=== PATIENT | male | born 1945 | race African-American/Black ===

== ENCOUNTER 2019-02-25 16:04 | Inpatient (IN) ==
--- NOTE | 2019-02-25 18:46 | Diag Imaging Result Doc PS360 ---
EXAM: CHEST-2 VIEWS INDICATION: COUGH TECHNIQUE: 2 views COMPARISON: 08/27/2018 FINDINGS: There are partial pneumonectomy changes on the right. There is a very dense consolidation involving the right lower lung zone and, to a lesser degree, the right midlung zone. The right midlung zone opacity can be seen on the previous study. The more dense consolidation at the right lung base is new. The left lung is clear. Cardiac silhouette is stable. IMPRESSION: Dense consolidation on the right indicating pneumonia. Electronically signed by Srikanth Dobson 02/25/2019 6:43 PM
[2019-02-25 18:48] LABS: URINE SOURCE CLEAN CATCH
[2019-02-25 18:53] LABS: BILIRUBIN URINE NEGATIVE (NEGATIVE); BLOOD URINE TRACE (NEGATIVE); COLOR YELLOW; GLUCOSE URINE NEGATIVE (NEGATIVE); KETONE URINE TRACE mg/dL (NEGATIVE); LEUKOCYTES URINE NEGATIVE (NEGATIVE); NITRITE URINE NEGATIVE (NEGATIVE); PH URINE 5.5; PROTEIN URINE 30 mg/dL (NEGATIVE); SP GRAVITY URINE 1.029; TURBIDITY URINE CLEAR (CLEAR); UROBILINOGEN URINE NORMAL (NORMAL)
[2019-02-25 18:54] LABS: BASO# 0.03 X1000 (0.0-0.2); BASO% 0.3 % (0.0-0.8); EOS# 0.01 X1000 (0.0-0.7); EOS% 0.1 % (0.0-10.0); HEMATOCRIT 37.8 % (42.0-52.0); HEMOGLOBIN 12.5 g/dL (14.0-18.0); IMM GRAN# 0.03 X1000 (0.0-0.04); IMM GRAN% 0.3 % (0.0-0.5); LYMPH# 1.68 X1000 (1.2-3.4); LYMPH% 16.1 % (20.5-51.1); MCH 29.8 PG (27-31); MCHC 33.1 g/dL (33-37); MCV 90.2 FL (81-99); MONO# 0.93 X1000 (0.11-0.59); MONO% 8.9 % (1.7-9.3); MPV 10.6 FL (7.4-10.4); NEUT# 7.78 X1000 (1.4-6.5); NEUT% 74.3 % (42.2-75.2); PLT 209 X1000 (130-400); RBC 4.19 XMIL (4.7-6.1); RDW 13.5 % (11.5-14.5); WBC 10.46 X1000 (4.8-10.8)
[2019-02-25 18:57] LABS: UR EPITHELIAL CELLS <10 /HPF (<10); URINE BACTERIA NEGATIVE /HPF; URINE RBC <10 /HPF (<10); URINE WBC <10 /HPF (<10)
[2019-02-25 19:02] LABS: URINE CASTS NONE SEEN; URINE CRYSTALS NONE SEEN; URINE YEAST NONE SEEN
[2019-02-25 19:11] LABS: AGAP 14; ALB/GLOB RATIO 0.9; ALBUMIN 3.9 g/dL (3.5-5.0); ALKALINE PHOSPHATASE 71 U/L (32-122); BUN 17 mg/dL (8-22); CALCIUM 9.5 mg/dL (8.8-10.2); CHLORIDE 93 mmol/L (98-107); COSMO 261; CREATININE 0.9 mg/dL (0.7-1.2); ESTIMATED GFR > 60; GLUCOSE 105 mg/dL (70-104); GOT 31 U/L (10-34); GPT 16 U/L (10-44); POTASSIUM 5.1 mmol/L (3.5-5.1); SODIUM 129 mmol/L (136-145); TCO2 22 mmol/L (25-35); TOTAL BILIRUBIN 0.73 mg/dL (0.20-1.00); TOTAL PROTEIN 8.1 g/dL (6.3-8.3)
--- NOTE | 2019-02-25 19:36 | PROVIDER DOCUMENTATION ---
HPI-General Adult - General Chief Complaint: Abdominal Pain Stated Complaint: EXTREMITY PAIN,LUNG CANCER Time Seen by Provider: 02/25/19 17:18 Source: patient Allergies/Adverse Reactions: Patient Allergies Allergy/AdvReac Type Severity Reaction Status Date / Time No Known Allergies Allergy Verified 02/20/19 08:10 Home Medications: Home Medication List Medication Instructions Recorded Confirmed Last Taken Type Hydrocodone/Acetaminophen [[place] 1 ea PO TID 02/20/19 02/20/19 Unknown History 7.5-325 Tablet] Zolpidem Tartrate [Ambien] 10 mg PO QHS 02/20/19 02/20/19 Unknown History - History of Present Illness -Gen Adult Nature of Presenting Problems: 74 YOM WITH PMH PRESENTS WITH C/O GENERALIZED ABDOMINAL DISCOMFORT, POOR PO INTAKE AND SCROTAL SWELLING. HE REPORTS HE WAS SUPPOSED TO SEE CARDIOLOGY TODAY FOR SURGICAL CLEARANCE FOR SCROTAL SURGERY BUT THE OFFICE WAS CLOSED. HE HAS A HX OF LUNG CA AND FAMILY REPORTS THEY ARE CONCERNED IT HAS SPREAD AND THAT IS WHY HE WAS BROUGHT IN. HE HAD A LOBECTOMY IN 2016. Location of Pain/Injury: reports: back Pain Radiation: reports: no radiation Quality of Pain: reports: aching Severity: reports: moderate Onset/Duration: reports: unsure Timing: reports: still present Context/Activities at Onset: reports: none Modifying Factors: improves with: nothing Associated Symptoms: reports: back/neck pain (BACK PAIN), other (SWELLING IN SCROTUM) Similar Symptoms Previously?: Yes Recently seen or treated by another doctor?: No Review of Systems - Adult - REVIEW OF SYSTEMS - ADULT Constitutional: reports: no symptoms reported. denies: see HPI, chills, fever, fatique, night sweats, weight gain, weight loss, other Eyes: reports: no symptoms reported. denies: see HPI, discharge, dry eyes, dec reased vision, blurred vision, double vision, eye pain, redness, other Ears, Nose, Mouth & Throat: reports: no symptoms reported. denies: see HPI, ear discharge, ear pain, hearing loss, tinnitus, epistaxis, sinus problem, nose pain, loose teeth, mouth/dental pain, mouth swelling, hoarseness, throat pain, throat swelling, other Cardiovascular: reports: no symptoms reported. denies: see HPI, chest pain, edema, heart murmur, irregular heart rate, orthopnea, palpitations, poor circulation, PND, syncope, other Respiratory: reports: see HPI, chronic cough, cough, dyspnea on exertion. denies: no symptoms reported, excessive sputum production, hemoptysis, pleurisy, shortness of breath, wheezing, other Gastrointestinal: reports: no symptoms reported. denies: see HPI, abdominal pain, hematemesis, constipation, diarrhea, difficulty swallowing, frequent heartburn, nausea, poor appetite, rectal bleeding, vomiting, other Genitourinary: reports: no symptoms reported. denies: see HPI, dysuria, di scharge, frequency, flank pain, frequent UTI's, hematuria, hesitency, incontinence, urinary retention, urgency, other Musculoskeletal: reports: see HPI, back pain Integumentary: reports: no symptoms reported. denies: see HPI, hives, hair loss, itching, mole changes, nail changes, rash, skin sores/ulcer, skin thickening, other Neurological: reports: no symptoms reported. denies: see HPI, ataxia, dizziness/vertigo, headache/migraines, loss of balance, numbness, paresthesia, seizure, slurred speech, syncope, tremors, other Psychiatric: reports: no symptoms reported. denies: see HPI, anxiety, anti- depressant use, alcohol/drug dependence, depression, emotional problems, insomnia, panic attacks, suicidal thoughts, other Endocrine: reports: no symptoms reported. denies: see HPI, change in skin pigment, excessive sweating, goiter, cold intolerance, heat intolerance, increased hunger, increased thirst, polyuria, other Hematologic/Lymphatic: reports: no symptoms reported. denies: see HPI, blood clots, easy bruising, low blood count, lymphedema, prolonged bleeding, swollen lymph nodes, transfusions, other Allergic/Immunologic: reports: no symptoms reported. denies: see HPI, allergic reactions, allergic rhinitis, asthma, eczema, food allergy, frequent infections, hay fever, hives, positive PPD, urticaria, other Past History - Adult - PAST MEDICAL HISTORY-ADULT Review of Records: reports: Nursing Assessment Review, Social history reviewed & non-contributory. Major Childhood Illnesses: reports: denies history Cardiovascular: reports: denies history Respiratory: reports: cancer Gastrointestinal: reports: denies history Obstetrical/Gynecological: reports: denies history Genitourinary: reports: denies history Musculoskeletal: reports: denies history Neurological: reports: denies history Endocrine/Immune: reports: denies history Other Conditions: reports: denies history - PRIOR SURGERIES/PROCEDURES Surgical/Procedure History: reports: back/neck, other - IMMUNIZATION STATUS Childhood Immunizations: See Nurse Assessment Flu Vaccine: See Nurse Assessment - FAMILY HISTORY Family History: reviewed, not pertinent Physical Exam-General - PHYSICAL EXAM-ADULT Initial Vital Signs Reviewed: Yes - CONSTITUTIONAL General Appearance: alert, no apparent distress, thin - EYES Eyes: PERRL/EOMI, pink conjunctivae - HEAD, EARS, NOSE, MOUTH & THROAT HENMT: normocephalic/atraumatic, moist mucous membranes, normal ENT inspection - NECK Neck: non-tender, full range of motion, supple - RESPIRATORY Respiratory: no respiratory distress, crackles (RLL) - CARDIOVASCULAR Cardiovascular: normal peripheral pulses, regular rate, rhythm. negative: no edema (PT HAS SCROTAL EDEMA WHICH IS NOT NEW) - GASTROINTESTINAL (ABDOMEN) Abdominal Exam: normal bowel sounds, non tender, soft - LYMPHATIC Lymphatic: no adenopathy - MUSCULOSKELETAL Back Exam: normal inspection, no CVA tenderness, no vertebral tenderness Extremity: normal range of motion, non-tender, normal gait, normal inspection - SKIN Integumentary: normal color, normal turgor, warm/dry - NEUROLOGIC Neurologic: grossly normal - PSYCHIATRIC Psych/Mental Status: normal mood/affect, oriented x 3 Progress - PLAN OF CARE/RESULTS Progress/Plan/Lab Results: Vital Signs - 8 hr 02/25/19 16:24 Temperature 98.0 F Pulse Rate 101 H Respiratory Rate 18 Blood Pressure 109/72 O2 Sat by Pulse Oximetry 95 Laboratory Results - last 24 hr 02/25/19 02/25/19 02/25/19 18:32 18:32 18:32 WBC 10.46 RBC 4.19 L Hgb 12.5 L Hct 37.8 L MCV 90.2 MCH 29.8 MCHC 33.1 RDW Std Deviation 13.5 Plt Count 209 MPV 10.6 H Immature Gran % (Auto) 0.3 Neut % (Auto) 74.3 Lymph % (Auto) 16.1 L [place] % (Auto) 8.9 Eos % (Auto) 0.1 Baso % (Auto) 0.3 Immature Gran # (Auto) 0.03 Neut # (Auto) 7.78 H Lymph # (Auto) 1.68 [place] # (Auto) 0.93 H Eos # (Auto) 0.01 Baso # (Auto) 0.03 Sodium 129 L Potassium 5.1 Chloride 93 L Carbon Dioxide 22 L Anion Gap 14 BUN 17 Creatinine 0.9 Estimated GFR/1.73 m2 > 60 BUN/Creatinine Ratio 19 Glucose 105 H Calculated Osmolality 261 Calcium 9.5 Total Bilirubin 0.73 AST 31 ALT 16 Alkaline Phosphatase 71 Total Protein 8.1 Albumin 3.9 Globulin 4.2 Albumin/Globulin Ratio 0.9 Urine Source CLEAN CATCH Urine Color YELLOW Urine Turbidity CLEAR Urine pH 5.5 Ur Specific [place] 1.029 Urine Protein 30 A Ur Glucose (Stick) NEGATIVE Ur Ketones (Stick) TRACE A Urine Blood TRACE A Urine Nitrite NEGATIVE Urine Bilirubin NEGATIVE Urobilinogen Dipstick NORMAL Urine Leukocytes NEGATIVE Urine WBC (Auto) <10 Urine RBC (Auto) <10 U Epithel Cells (Auto) <10 Urine Bacteria (Auto) NEGATIVE Urine Crystals NONE SEEN Small Round Cells Not Reportable Urine Casts NONE SEEN Urine Yeast-like Cells NONE SEEN Orders Category Date Time Status cxr [CHEST-2 VIEWS] [RAD] Stat Exams 02/25/19 17:22 Completed CBC WITH ELECTRONIC DIFF [HEME] Stat Lab 02/25/19 18:32 Completed COMPREHENSIVE METABOLIC PANEL [CHEM] Stat Lab 02/25/19 18:32 Completed UA NIMS W/REFLEX CULT [URINALYSIS] Stat Lab 02/25/19 18:32 Completed URINE MANUAL MICROSCOPIC [URINALYSIS] Stat Lab 02/25/19 18:32 Completed EKG [EKG] Stat Ther 02/25/19 17:22 Ordered Result Diagrams: 02/25/19 18:32 02/25/19 18:32 - EKG 1 Time of EKG reading by physician:: 18:36 EKG Read and Signed by:: Iftikhar Celis EKG Interpretation (*Must complete 3 of following elements*): Abnormal Rate: 103 Rhythm: ST [place]: normal QRS: normal [place] Interval: normal ST Wave: normal Prior EKG Comparison: no prior EKG - XRAY 1 XRAY Study: Chest Impression: See EMR Report (EXAM: CHEST-2 VIEWS INDICATION: COUGH TECHNIQUE: 2 views COMPARISON: 08/27/2018 FINDINGS: There are partial pneumonectomy changes on the right. There is a very dense consolidation involving the right lower lung zone and, to a lesser degree, the right midlung zone. The right midlung zone opacity can be seen on the previous study. The more dense consolidation at the right lung base is new. The left lung is clear. Cardiac si lhouette is stable. IMPRESSION: Dense consolidation on the right indicating pneumonia. Electronically signed by Srikanth Dobson 02/25/2019 6:43 PM 02/25/191842 Interpreting Physician: Srikanth Dobson MD Dictated Date/Time: 02/25/191841 cc: Rufina Lamar; Mike Uribe MD) Departure - Departure Date of Disposition Decision: 02/25/19 Time of Disposition Decision: 20:56 DIAGNOSIS: Pneumonia Disposition: ADMITTED INPATIENT 09 Certified Medical Emergency: Emergent Condition: Stable Referrals and Follow-Ups: Mike Uribe MD [Primary Care Provider] - - Critical Care Note This patient required my direct & personal management of CC.: No Attestation - Physician/ OSCAR Attestation Patient care was provided by Advanced Practice Provider:: Yes Advanced Practice Provider:: Rufina Lamar Advanced Practice Provider documentation review:: The Mid-level provider documentation, treatment plan and medical decision making was reviewed by the physician who agrees with all treatment and medical decision making by the MLP. The physician spent face to face time with patient:: No Advanced Practice Provider documentation review:: Supervising physician onsite and consulted in the evaluation and care of this patient. The physician did not have a face to face encounter with the patient.
--- NOTE | 2019-02-25 19:51 | EKG Report ---
Test Performed on : 02/25/2019 6:36:49 PM Test Reason : CP Blood Pressure : / mmHG Vent. Rate : 103 BPM Atrial Rate : 103 BPM P-R Int : 120 ms QRS Dur : 070 ms QT Int : 322 ms P-R-T Axes : 061 070 058 degrees QTc Int : 421 ms Sinus tachycardia. Possible Left atrial enlargement Borderline ECG When compared with ECG of 20-FEB-2019 08:26, Sinus rhythm. has replaced Atrial fibrillation. Nonspecific T wave abnormality no longer evident in Inferior leads Nonspecific T wave abnormality no longer evident in Lateral leads Unconfirmed Result
[2019-02-25] MEDS ORDERED: ROCEPHIN 1 GM in NS 50 ML IV ONE (20:54)
[2019-02-25] MEDS ORDERED: ROCEPHIN 2 GM in NS 50 ML IV ONE (20:57)
[2019-02-25] MEDS ORDERED: ZOSYN 3.375 GM in NS 50 ML IV ONE (20:59)
[2019-02-25 21:21] LABS: INR 1.22; PROTIME 15.6 Seconds (11.0-16.0); PTT 32.7 Seconds (22.3-41.8)
--- NOTE | 2019-02-25 21:58 | Diag Imaging Result Doc PS360 ---
EXAM: ABDOMEN FLAT/UPRIGHT INDICATION: Abd. Pain, Poss. Constipation TECHNIQUE: 2 views COMPARISON: 08/14/2017 FINDINGS: There is nonspecific patchy bowel gas that appears to be predominantly colonic. There is no definite obstructive bowel pattern. There is no evidence of large volume free abdominal gas. There is a dense right basilar lung consolidation. Please see separate chest radiograph report performed recently. IMPRESSION: Nonspecific abdomen. Electronically signed by Srikanth Dobson 02/25/2019 9:56 PM
[2019-02-25] MEDS ORDERED: CARDIZEM IV ONE (22:06)
[2019-02-25] MEDS ORDERED: CARDIZEM CD PO ONE (22:15)
[2019-02-25] MEDS ORDERED: CARDIZEM CD PO SCH (22:15)
[2019-02-25] MEDS: CARDIZEM 125 MG/D5W 125 MG/125 ML IVPB IV SCH (22:38)
--- NOTE | 2019-02-25 23:03 | EKG Report ---
Test Performed on : 02/25/2019 9:59:30 PM Test Reason : pna tele Blood Pressure : / mmHG Vent. Rate : 131 BPM Atrial Rate : 416 BPM P-R Int : 000 ms QRS Dur : 076 ms QT Int : 286 ms P-R-T Axes : 000 070 029 degrees QTc Int : 422 ms Atrial fibrillation. with rapid ventricular response. Abnormal ECG When compared with ECG of 25-FEB-2019 18:36, (Unconfirmed) Atrial fibrillation. has replaced Sinus rhythm. Nonspecific T wave abnormality now evident in Inferior leads Unconfirmed Result
[2019-02-25] MEDS ORDERED: ZOFRAN IV PRN (23:15)
[2019-02-25] MEDS ORDERED: NICODERM PATCH TD PRN (23:15)
[2019-02-25] MEDS ORDERED: TESSALON PO PRN (23:15)
[2019-02-25] MEDS ORDERED: NS NEB INH SCH (23:15)
[2019-02-26] MEDS: NORCO-10 PO PRN ×2 (00:11→20:11)
[2019-02-26] MEDS: ATROVENT NEB INH PRN ×3 (00:16→19:45)
[2019-02-26] MEDS: XOPENEX NEB INH PRN ×3 (00:16→19:45)
[2019-02-26] MEDS: AMBIEN PO PRN ×2 (01:09→20:11)
[2019-02-26] MEDS ORDERED: PRILOSEC PO PRN (02:01)
[2019-02-26] MEDS ORDERED: TYLENOL PO PRN (02:01)
[2019-02-26] MEDS: NS 1,000 ML IV SCH ×2 (02:50→12:47)
[2019-02-26 05:48] LABS: BASO# 0.02 X1000 (0.0-0.2); BASO% 0.2 % (0.0-0.8); EOS# 0.02 X1000 (0.0-0.7); EOS% 0.2 % (0.0-10.0); HEMATOCRIT 32.5 % (42.0-52.0); HEMOGLOBIN 10.8 g/dL (14.0-18.0); IMM GRAN# 0.02 X1000 (0.0-0.04); IMM GRAN% 0.2 % (0.0-0.5); LYMPH# 1.76 X1000 (1.2-3.4); LYMPH% 18.8 % (20.5-51.1); MCHC 33.2 g/dL (33-37); MCV 90.3 FL (81-99); MONO# 1.17 X1000 (0.11-0.59); MONO% 12.5 % (1.7-9.3); NEUT# 6.37 X1000 (1.4-6.5); NEUT% 68.1 % (42.2-75.2); PLT 174 X1000 (130-400); RDW 13.4 % (11.5-14.5); WBC 9.36 X1000 (4.8-10.8)
[2019-02-26 06:15] LABS: AGAP 12; BUN 15 mg/dL (8-22); CALCIUM 9.1 mg/dL (8.8-10.2); CHLORIDE 97 mmol/L (98-107); COSMO 262; CREATININE 0.8 mg/dL (0.7-1.2); ESTIMATED GFR > 60; GLUCOSE 103 mg/dL (70-104); MAGNESIUM 2.1 mg/dL (1.5-2.7); POTASSIUM 4.7 mmol/L (3.5-5.1); SODIUM 130 mmol/L (136-145); TCO2 21 mmol/L (25-35)
[2019-02-26] MEDS: ZOSYN 3.375 GM in NS 50 ML IV SCH ×3 (07:43→20:12)
--- NOTE | 2019-02-26 07:52 | EKG Report ---
Test Performed on : 02/26/2019 07:43:24 AM Test Reason : A-Fib Blood Pressure : / mmHG Vent. Rate : 078 BPM Atrial Rate : 078 BPM P-R Int : 120 ms QRS Dur : 080 ms QT Int : 386 ms P-R-T Axes : 057 066 048 degrees QTc Int : 440 ms Poor data quality, interpretation may be adversely affected Normal sinus rhythm. Normal ECG When compared with ECG of 25-FEB-2019 21:59, (Unconfirmed) Sinus rhythm. has replaced Atrial fibrillation. Vent. rate has decreased BY 53 BPM Confirmed by Foster PRIDE, Robb Vela ([id number]) on 02/26/2019 9:11:41 AM
--- NOTE | 2019-02-26 08:45 | Diag Imaging Result Doc PS360 ---
EXAM: CT THORAX W/CONTRAST 02/26/2019 HISTORY: RLL PNA,Hx of R Lung CA TECHNIQUE: This exam was performed using automated exposure control, adjustment of mA or kV according to patient size, and/or use of iterative reconstruction technique. COMMENT: There are no previous studies available for comparison. There is apparent left supraclavicular adenopathy. The individual nodes are not identifiable given the extreme lack of surrounding fat. There is also right paratracheal and prevascular adenopathy. There is a large mass of nodes anterior to the bebo which measures at least 2.6 cm in diameter. There is a conglomerate mass around the right hilum with extrinsic compression of the upper lobe pulmonary artery and the interlobar artery. The lower lobe pulmonary veins apparently are thrombosed and calcified. There is obstruction of the right mainstem bronchus. There is extensive alveolar opacification of most of the right lung with the exception of the right upper lobe. There is a discrete spiculated mass in the upper lobe measuring 2.7 cm in diameter. Multiple posterior mediastinal necrotic appearing enlarged nodes are present including one adjacent to the esophagus on the right measuring at least 2.6 cm in diameter. There is massive retroperitoneal adenopathy seen in the abdomen particularly below the level the renal pedicles on the right. There are some emphysematous changes noted in the left lower lobe and upper lobe. No evidence of acute pulmonary disease is present on the left. There is lytic change in the posterior right sixth rib as well as some apparent postsurgical changes. This may be related to localized invasion rather than hematogenously spread metastatic disease. There are spondylotic changes in the thoracic spine. IMPRESSION: Extensive adenopathy as described throughout the mediastinum, right hilum, left supraclavicular region and retroperitoneal nodes in the abdomen. Extensive mass in the parahilar region of the right lung with separate mass in the right upper lobe. Lymphangitic spread of carcinoma and/or post obstructive pneumonitis is present on the right as well. There is likely invasion of the posterior chest wall possibly related to previous thoracotomy in this location. Comparison with previous studies would be helpful. Electronically signed by Tyler Costello 02/26/2019 8:43 AM
--- NOTE | 2019-02-26 08:52 | HISTORY AND PHYSICAL ---
PRIMARY CARE PROVIDER: Dr. Uribe. DATE AND TIME: 02/25/2019 at 2115. CHIEF COMPLAINT: Shortness of breath. HISTORY OF PRESENT ILLNESS: Mr. Motta is a 74-year-old -[place] male who unfortunately is not a good historian and does appear to have some medical noncompliance as well. The patient states that he does have a past medical history most pertinent for atrial fibrillation, COPD, history of lung cancer in the right lower lobe, status post partial pneumonectomy on the right for which he did receive chemo and radiation previously. The patient reports 2 weeks ago that he was admitted to [facility], though did ultimately sign out against medical advice. He has recently been prescribed prescriptions for amoxicillin, azithromycin, and ciprofloxacin. I am not sure which one of these the patient was supposed to be taking possibly for treatment of his pneumonia, though he states he has not taken them anyway. He also reports that he was supposed to have a surgery for some fluid on his scrotum on Monday. I am assuming this was possibly a surgical procedure for hydrocele, though due to his heart rate being irregular and elevated, they did not do the procedure. He was supposed to follow up with Cardiology today, though he reports that for an unknown reason their office was closed. He states that for several weeks now that he has had worsening fatigue. He also reports that he has had worsening shortness of breath, productive cough with white to yellowish thick colored sputum. He states that he is having some right mid chest pain though this is only when he coughs. It does not hurt any other time. It does not radiate. It stays just in the anterior right mid chest. He denies any fever, body aches, or chills though he is reporting he has had some generalized abdominal pain. He reports that he has been a little constipated and did take magnesium citrate yesterday, though only had a very small bowel movement. He also reports that the antibiotics he was taking were hurting his stomach and that is why he did not complete the antibiotic course. He denies any nausea or diarrhea. He reports no dysuria. He denies any pain, numbness, tingling or swelling in extremities. Upon questioning the patient about his adherence to his prescription medications, he reports the only thing he takes regularly is his Denver and Ambien. He was supposed to be taking the antibiotics as previously mentioned, as well as Cartia XT 120 mg p.o. daily for his heart rate control and he states that he does not take that either like he is supposed to, though he denies having any feelings of palpitations or his heart racing. He also denies any dizziness, feeling of being lightheaded or headache. Upon evaluation in the ER, patient's initial vital signs were temperature 98 degrees, heart rate 101, respirations 18, blood pressure is 109/72, and oxygen saturation was 95% on room air. Laboratory results reveal that he is mildly hyponatremic with a sodium of 129, though his CK was within normal limits at 115. His troponin was elevated at 0.2. Chest x-ray did show a dense consolidation on the right indicating pneumonia. During my examination in the ER, I did notice that the patient's pulse rate on the pulse oximeter was very erratic, was going from 80s up into the 140s. We did place him back on the bedside order booker and the patient did appear to be in atrial fibrillation with rapid ventricular response. He was ranging anywhere from 110 to 140s though did get up at 1 point to as high as 170. He did briefly flop back and forth in and out of atrial fibrillation and sinus rhythm, though ultimately did end up going and staying in atrial fibrillation with rapid ventricular response. Given this, we did go ahead and place a Cardizem push and he has been placed on a Cardizem drip as well. Blood cultures have been obtained. We have placed him on antibiotic coverage of Zosyn IV. We do plan to do a CT of the chest with contrast in the morning as well as a cardiology consult. He will be placed on inpatient admission to the PVC unit for close monitoring. REVIEW OF SYSTEMS: A 14-point review of systems was conducted with the patient and all were negative except for pertinent positives mentioned in the above HPI. PAST MEDICAL HISTORY: 1. Atrial fibrillation. It does appear the patient has paroxysmal atrial fibrillation. He did report he was noncompliant with his Cartia XT. He also reports that he does not take any type of anticoagulant or anti-platelet. 2. Anemia. 3. History of right lower lobe lung cancer status post partial pneumonectomy as well as chemo and radiation. His oncologist is Dr. Dowling. 4. Chronic obstructive pulmonary disease. 5. Recent complications with scrotal swelling from which the patient describes I think may be hydrocele, though he was not able to confirm this. PAST SURGICAL HISTORY: 1. Back surgery. 2. Right partial pneumonectomy. 3. Colonoscopy with polyp removal. SOCIAL HISTORY: The patient still does currently smoke 1 pack of cigarettes per day and has done so since age 17. He did report occasional alcohol use, though states he has not drank in weeks. He denies any alcohol or illicit drug use. He does live by himself, though states he does have friends or family that can help him if needed. FAMILY HISTORY: Positive for his father having a history of heart disease, though he states he does not know any of his mother's past medical history. ALLERGIES: Patient has no known allergies. HOME MEDICATIONS: 1. Cartia XT 120 mg p.o. daily. 2. Ambien 10 mg p.o. at bedtime p.r.n. for sleep. 3. Denver 10 mg p.o. q.8 hours p.r.n. for pain. 4. Omeprazole 20 mg p.o. daily as needed for indigestion/heartburn. DIAGNOSTIC STUDIES: White blood cell count is 10,460, hemoglobin 12.5, hematocrit 37.8, platelet count is 209,000. PT 15.6, INR 1.22, PTT is 32.7. Sodium 129, potassium 5.1, chloride 93, serum bicarb is 22, BUN 17, creatinine 0.9, glucose 105, calcium 9.5, magnesium 2.2. Liver function tests are within normal limits. CK 115, troponin 0.2. Plasma lactate was 1.6. Urinalysis was obtained via clean catch and was positive for protein, trace ketones, and blood. It was negative for glucose, nitrites, leukocytes, white blood cells, or bacteria. EKG initially did show sinus tachycardia at a rate of 103 with possible left atrial enlargement, though repeat EKG did confirm the patient was in atrial fibrillation with rapid ventricular response at a rate of 103 with a QTc of 422. When I compared this EKG from his previous EKG that was just done on February 20, there does not appear to be any acute changes noted. Flat and upright abdomen x-ray showed nonspecific patchy bowel gas that appears to be predominantly colonic. There is no definite obstructive bowel pattern. There is no evidence of large volume free abdominal gas. There is a dense right basilar lung consolidation. Please see separate chest radiograph report performed recently. This is per Radiology. Chest x-ray did show partial pneumonectomy changes on the right. There is a very dense consolidation involving the right lower lung zone and to a lesser degree the right mid lung zone. The right mid lung zone opacity can be seen on a previous study. The more dense consolidation in the right lung base is new. The left lung was clear. This is per Radiology. PHYSICAL EXAMINATION: VITAL SIGNS: Most recent vital signs would be heart rate 163, respirations 14, blood pressure 130/85, oxygen saturation was 98% on room air. GENERAL: Mr. Motta is a pleasant 74-year-old -[place] male. He was resting on the ER stretcher. He is in no acute distress. He was awake, alert, and able to answer questions appropriately. HEENT: Head is atraumatic, normocephalic. Pupils are equal, round, reactive to light were 3 mm bilaterally and brisk. Oral mucosa was moist. Oropharynx clear. NECK: Supple. Trachea midline. CARDIOVASCULAR: Patient has S1-S2 present. He has no murmurs, gallops, or rubs appreciated though he does have a irregularly irregular rate that is tachycardic anywhere from the 110s to 160s. PULMONARY: Patient has symmetrical chest expansion bilaterally. Lung sounds are clear to auscultation in bilateral upper trevino though he does have clear lung sounds in the left lower lung trevino, though he was diminished pretty much from the right mid lung down in the lower lobes. Right lower lobes had absent lung sounds. ABDOMEN: Soft, does appear to be slightly distended. The patient reports some generalized tenderness, though no rebound tenderness noted. Bowel sounds were present in all 4 quadrants and were normoactive. EXTREMITIES: No cyanosis or edema noted. Pulse, motor, and sensory were intact in all extremities. Radial pulses were 2+ bilaterally. Pedal pulses were 1+ bilaterally. INTEGUMENTARY: The patient's skin color is normal for his race, is dry and intact. NEUROLOGICAL: Patient is alert and oriented to person, place, time, and situation. He is able move all extremities. There were no focal neurological deficits noted. ASSESSMENT AND PLAN: 1. Right middle lobe to lower lobe pneumonia. We have obtained blood cultures and sputum culture has been ordered as well. We have placed the patient on antibiotic coverage with Zosyn. We will continue with aggressive pulmonary toilet with incentive spirometry, encouragement to turn, cough and deep breathe. Atrovent and Xopenex treatments as needed. Given the patient's history of lung cancer as well as his x-ray findings, we are going to order a CT chest with contrast in the morning. We will await those results and continue to follow. 2. History of chronic obstructive pulmonary disease. We will continue treatment as mentioned above for #1. 3. Atrial fibrillation with rapid ventricular response. The patient does report that he is not compliant with his Cartia XT on a regular basis. He has been given Cardizem push and we placed him on a Cardizem drip. He will be placed in the PVC unit for close monitoring. The patient was supposed to have a procedure on Monday, though due to his heart rate being elevated, they did not perform this. The patient is denying any chest pain at this time, except for only when he coughs in the anterior right mid chest, though his troponin was elevated. We will go ahead and do a series of cardiac enzymes. We will repeat EKG in the morning. We have placed a consult with Cardiology with Dr. Jha. We will await their evaluation and further recommendations for management. 4. Nicotine dependence. We did discuss for several minutes with the patient the importance of him to quit smoking given that he has had a history of lung cancer, COPD, and now has pneumonia. He states verbal understanding. We will continue to alcohol and drug counselor him on this throughout his admission and upon discharge. We have placed orders for a nicotine patch if needed. 5. Abdominal pain. The patient has reported that he has been having some abdominal pain. He also reports that he has not had a bowel movement for several days until yesterday when he did have to take some magnesium citrate and had a very small bowel movement. We did perform a abdomen x-ray, flat and upright, which showed nonspecific patchy bowel gas that appears to be predominantly colonic. There is no definite obstructive bowel pattern. There was no evidence of large volume free abdominal gas. Though given the patient's reported symptoms we will go ahead and place him on a bowel regimen with MiraLAX and Colace. We will monitor his response to this. The patient was placed on PVC unit for close monitoring. We will do continuous cardiac telemetry, frequent vital signs, incentive spirometry. He will be on a heart healthy diet. We will repeat a CBC and BMP in the morning. Further orders and recommendations pending hospital course, diagnostic studies, and physician evaluation. Patient seen and examined by me face to face, all the laboratory, vitals signs and images were reviewed, patient presented to the emergency department complaining of shortness of breath, as per the patient he has been having this kind of symptoms for a couple weeks, he has a history of COPD and lung cancer S/P pneumonectomy, partial, on my physical exam he has rhonchi at the right base, mild crepitus on the left lower thoracic area, he has A Fib with RVR, so the patient will be admitted tp the cardiac unit, we will start Diltiazem drip, antibiotics, fluids, stool softener for constipation, I agree with the ACCOUNT REVIEW SPECIALIST's assessment and plan, Jameson Liu MD. Dictated by SHARLA Bee for Jameson Mireles MD cc: MD Mike Hurtado MD [email or web address]
[2019-02-26] MEDS ORDERED: LOVENOX SUBQ SCH (09:00)
--- NOTE | 2019-02-26 09:28 | Diag Imaging Result Doc PS360 ---
EXAM: CT ABD/PELVIS W/IV CONT ONLY 02/26/2019 HISTORY: chest mass extending into abdomen TECHNIQUE: This exam was performed using automated exposure control, adjustment of mA or kV according to patient size, and/or use of iterative reconstruction technique. COMMENT: There are no previous studies available for comparison. Extensive disease in the chest has been previously described on the thoracic study. There are some very small lucencies anteriorly in the left hepatic lobe seen on image 44 which may represent cysts. Otherwise there is no definite evidence of disease in the liver. The adrenal glands are not enlarged. The spleen is not enlarged. The pancreas is unremarkable in appearance. There is some retrocrural adenopathy which a suggestion of central necrosis. There are also necrotic appearing large matted nodes in the periaortic region on the right. The inferior vena cava is displaced anteriorly by these nodes. There is some atherosclerotic calcification in the aorta which is slightly distended below the level of the renal arteries to a maximum AP diameter of 3 cm. There is considerable mural thrombus. There is an apparent cyst in the upper pole of the right kidney. There is no evidence of hydronephrosis or solid masses. There is a fair amount of stool throughout the colon. There is no evidence of appendicitis. Pelvis: Some adenopathy is noted in the right common and external iliac chain. There are a few nonspecific appearing external iliac nodes on the left. The urinary bladder is not distended. There is some presacral fat edema of uncertain significance. There is calcium pyrophosphate deposition in the symphysis pubis. There are mild degenerative changes in the hips. There is some lytic disease just above the right acetabulum. As may be due to metastatic disease. There are severe facet changes in the lower lumbar spine. IMPRESSION: 1. Extensive adenopathy as described above. 2. Probable osseous metastatic disease in the right iliac bone just above the acetabulum. Electronically signed by Tyler Costello 02/26/2019 9:25 AM
[2019-02-26] MEDS: COLACE PO SCH ×2 (12:10→20:11)
[2019-02-26] MEDS: MIRALAX PO SCH (12:10)
[2019-02-26] MEDS: CARDIZEM 125 MG/D5W 125 MG/125 ML IVPB IV SCH (12:47)
--- NOTE | 2019-02-26 13:36 | PROGRESS NOTE ---
DATE: 02/26/2019 The patient was admitted last night with pneumonia involving the right lower lobe. He had a CT scan done of the abdomen and pelvis, which revealed extensive adenopathy and probable osseous metastasis in the right iliac bone just above the acetabulum. There was a small density in the liver which could be bili versus adenopathy and considerable mural thrombus in the renal arteries. There is no evidence of hydronephrosis. He has a lytic lesion about the right acetabulum which probably has a metastatic disease, and several facet changes in the lumbar spine. He had a CT scan of the chest, which revealed extensive adenopathy as described throughout the mediastinum and right hilum, left superior and lacunar region and retroperitoneal nodes. This is probably a lymphatic spread of the carcinoma. He is on IV Zosyn. We will consult with DR. Dowling for the further management of cancer. -3 cc: Mike Uribe MD
--- NOTE | 2019-02-26 14:31 | CONSULTATION ---
DATE OF CONSULTATION: 02/26/2019 IMPRESSIONS: 1. Paroxysmal atrial fibrillation. Patient has spontaneously converted back to sinus rhythm. He had a previous episode about 3 weeks ago that also spontaneously converted back. 2. Recurrent/metastatic non-small cell lung cancer with history of previous partial pneumonectomy on the right followed by chemotherapy and radiation. 3. Chronic obstructive pulmonary disease. 4. Moderate mitral regurgitation. 5. Atherosclerotic coronary disease. RECOMMENDATIONS: 1. Initiate sotalol 80 mg p.o. b.i.d. to suppress paroxysmal atrial fibrillation. 2. Initiate low-dose Eliquis 2.5 mg p.o. b.i.d. as tolerated for now. Consideration may be given in the future to increase dose to 5 mg p.o. b.i.d. if he tolerates this reasonably well. HISTORY: This 74-year-old male with a past history of paroxysmal atrial fibrillation, COPD, and non-small cell lung cancer was admitted with recurrent atrial fibrillation with rapid ventricular rate. He was just in the hospital in [place] a few weeks ago and records indicate that he was in atrial fibrillation with rapid ventricular rate, after which he spontaneously converted back to sinus rhythm. He did not complete his hospitalization there and left against medical advice. He had been on antibiotic therapy presumably for respiratory infection. He has had recent problems of worsening fatigue, shortness of breath, and productive cough of white to yellowish thick colored sputum. He also has been having some chronic right flank pain. There is some history of inconsistent compliance with medications, although he apparently has been taking his Hamer for pain and Ambien for sleep. He has not been taking his Cartia XT recently. He was found to be in atrial fibrillation with rapid ventricular rate. Since admission to telemetry he has converted back to sinus rhythm. He denies any chest pain. He has not had any palpitations. PAST MEDICAL HISTORY: 1. Atherosclerotic coronary disease. He has no angina. 2. Paroxysmal atrial fibrillation. 3. COPD. 4. Non-small cell lung cancer of the right lung. Patient is status post right lower lobe lobectomy May 30, 2016 followed by chemotherapy and radiation therapy. He has had recurrent/metastatic non-small cell lung cancer. 5. Moderate mitral regurgitation with history of mitral valve prolapse. 6. Chronic alcohol use. PAST SURGICAL HISTORY: Unspecified back surgery, right lower lobe lobectomy, and colonoscopy with polyp removal. ALLERGIES: He has no known drug allergies. MEDICATIONS PRIOR TO ADMISSION: As listed. 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 He smokes 1 pack of cigarettes per day. He drinks an occasional alcoholic beverage. FAMILY HISTORY: Negative for premature coronary disease. REVIEW OF SYSTEMS: Pulmonary: Noteworthy for some exertional shortness of breath as well as productive cough. Sputum described has been white to yellowish in color. Gastrointestinal: Review of systems negative. Constitutional: Review of systems negative for fever. Remainder of review of systems negative/noncontributory with 14 total systems reviewed. PHYSICAL EXAMINATION: General: This is a thin, older -[place] male, in no distress. Vital signs: Blood pressure 122/79, heart rate 98, oxygen saturation 100% on room air. HEENT: Extraocular movements intact. Mucous membranes are moist. Neck: Supple without jugular venous distention. There are no carotid bruits. Chest: Auscultation of the chest reveals diminished breath sounds in the right chest more than half way up the back. Breath sounds on the left are normal. No rales could be appreciated. Cardiac Exam: Reveals a regular rate and rhythm without appreciable murmur or gallop. Abdomen: Soft. Bowel sounds are normal. Extremities: Without edema. Neurologic: Reveals him to be alert and fully oriented. Speech is fluent. Moves all 4 extremities equally well. Skin: Warm and dry. Psychiatric: Reveals mood to be appropriate. PERTINENT DATA: Twelve lead EKG this morning shows normal sinus rhythm and is within normal limits. LABORATORY DATA: Includes white blood cell count 9.36, hematocrit 32.5, hemoglobin 10.8, platelet count 174,000. Sodium 130, potassium 4.7, chloride 97, carbon dioxide 21, BUN 15, creatinine 0.8, glucose 103. Initial CPK 115. Follow-up CPK 75. Initial troponin T 0.200. Follow-up troponin to 0.197. TSH 3.52. cc: MD Mike Pratt MD
[2019-02-26] MEDS: ELIQUIS PO SCH ×2 (14:52→20:11)
[2019-02-26] MEDS: BETAPACE PO SCH ×2 (14:52→20:11)
--- NOTE | 2019-02-26 19:46 | HEMO/ONC CONSULTATION ---
DATE: 02/26/2019 CONSULTATION REQUESTED BY: Hospitalist service. REASON FOR CONSULTATION: Lung cancer, patient known. HISTORY OF PRESENT ILLNESS: Mr. Motta is a 74-year-old male, who is known to us as we have previously treated him for metastatic nonsmall cell lung cancer. The last treatment the patient has received was Opdivo back on 01/12/2017. He discontinued treatment due to intolerance. He has been closely monitored since that time. We have been supporting him with symptomatic management. The patient has now been admitted with right middle lobe and lower lobe pneumonia as well as atrial fibrillation with rapid ventricular rate. He also has a history of chronic obstructive pulmonary disease. He is in the hospital for further evaluation and treatment. PAST MEDICAL HISTORY: Positive for: 1. COPD. 2. Alcohol abuse. 3. Degenerative disk disease. PAST SURGICAL INTERVENTION: 1. Back surgery. 2. Right lower lung lobectomy. SOCIAL HISTORY: Patient is single. He is a former smoker. He has previously reported to us that he is a daily drinker. Of course now, he is saying that he is smoking 1 pack of cigarettes again. It looks like he also recently discontinued the use of alcohol. He has support of family and friends. Up until recently, he has been working part time. FAMILY HISTORY: Positive for congestive heart failure, coronary artery disease. He has previously denied any history of cancer in his family. REVIEW OF SYSTEMS: A 12 point review of systems has been completed and negative except as expressed in HPI. PHYSICAL EXAMINATION: Vital Signs: Temperature 98.1 degrees, heart rate 98, respirations 20, blood pressure 122/79, O2 saturation 100% on room air. General: This is a thin, male lying in his hospital bed. He has a family member at bedside. He is in no acute distress. Head: Normocephalic, atraumatic. Eyes: Pupils equal, round, reactive. Ears, Nose, Throat, Neck, Mouth: Oral mucosa appears to be normal. Cardiovascular: S1, S2 heard. No murmurs, gallops, rubs appreciated. Respiratory: Chest is clear with normal respiratory effort. Gastrointestinal: Abdomen is soft. Positive bowel sounds. Musculoskeletal: No bony abnormalities. Skin: No rashes. Neurologic: Patient is alert and oriented. LABS AND STUDIES: White blood cells 9.36, hemoglobin 10.8, platelets 174,000. CT of the chest shows extensive adenopathy throughout the mediastinum and right hilum and left supraclavicular region. There are retroperitoneal nodes in the abdomen. Extensive mass in the perihilar region of the right lung with separate mass in the right upper lobe. Lymphangitic spread of the carcinoma and obstructive pneumonitis is also present. There is also likely invasion of the posterior chest wall, possibly related to previous thoracotomy. No prior studies to compare to. Extensive adenopathy is noted on the CT of abdomen and pelvis. He has probable osseous metastatic disease in the right iliac bone. ASSESSMENT AND PLAN: 1. Metastatic nonsmall cell lung cancer. No treatment since 2017. Patient has previously opted not to receive any treatment. Comparison to scans done in our office, with the last one being done in May 2017, it would seem that he does likely have worsening disease which would be expected, given that he has not had any treatment. At this point, we would recommend treating the patient's infection, and then we could always follow up with him as an outpatient to discuss further options, including hospice versus initiating palliative treatment. 2. Pneumonia. Continue antibiotics per the primary team. 3. Atrial fibrillation. Cardiology is now on board. Patient is on Eliquis. Continue management per cardiology team. Thank you for consulting us on Mr. Motta. We will continue to follow along and adjust our treatment plan per his hospital course. Dictated by [place] for Estelle Dowling MD cc: MD Mike Lowry MD I have seen and examined the patient and agree with the above note which reflects my history, physical exam, assessment and plan. Estelle MILLER
[2019-02-27] MEDS: ZOSYN 3.375 GM in NS 50 ML IV SCH ×4 (02:11→20:51)
--- NOTE | 2019-02-27 07:33 | EKG Report ---
Test Performed on : 02/27/2019 06:29:57 AM Test Reason : afib, betapace loading Blood Pressure : / mmHG Vent. Rate : 068 BPM Atrial Rate : 068 BPM P-R Int : 126 ms QRS Dur : 080 ms QT Int : 440 ms P-R-T Axes : 062 072 055 degrees QTc Int : 467 ms Normal sinus rhythm. Normal ECG When compared with ECG of 26-FEB-2019 07:43, No significant change was found Confirmed by Foster PRIDE, Robb Vela ([id number]) on 02/27/2019 8:39:10 AM
[2019-02-27] MEDS: COLACE PO SCH ×2 (08:17→20:50)
[2019-02-27] MEDS: BETAPACE PO SCH ×2 (08:17→20:50)
[2019-02-27] MEDS: ELIQUIS PO SCH ×2 (08:17→20:51)
[2019-02-27] MEDS: MIRALAX PO SCH (08:23)
--- NOTE | 2019-02-27 09:32 | PROGRESS NOTE ---
DATE: 02/27/2019 Mr. Motta has right lower lobe pneumonia where he had cancer, and he has local lymph gland enlargement, including right hilar gland enlargement and multiple nodes in the abdomen and pelvis. Besides that, he has metastatic disease in the right iliac bone just above the acetabulum. He is getting IV Zosyn. We are going to repeat the chest x-ray tomorrow. Overall condition and overall prognosis is poor. He is being seen by Dr. Dowling as the consulting oncologist. cc: Mike Uribe MD [facility]
[2019-02-27] MEDS: AMBIEN PO PRN (20:50)
[2019-02-28] MEDS: NORCO-10 PO PRN ×3 (00:18→19:20)
[2019-02-28] MEDS: ZOSYN 3.375 GM in NS 50 ML IV SCH ×4 (02:48→20:37)
--- NOTE | 2019-02-28 08:11 | Diag Imaging Result Doc PS360 ---
EXAM: CHEST-2 VIEWS 02/28/2019 HISTORY: pneumonia follow up TECHNIQUE: PA and lateral chest COMMENT: Compared to the previous study of 02/25/2019, there is increasing consolidation of the right lung particularly the lower and middle lobes, and there is increasing volume loss. This suggests the possibility of endobronchial obstruction. The heart size does not appear to be enlarged although the right heart border is completely obscured. IMPRESSION: Worsening volume loss and consolidation of the right lung as described. Electronically signed by Tyler Costello 02/28/2019 8:09 AM
--- NOTE | 2019-02-28 08:24 | EKG Report ---
Test Performed on : 02/28/2019 07:00:13 AM Test Reason : afib, betapace loading Blood Pressure : / mmHG Vent. Rate : 079 BPM Atrial Rate : 079 BPM P-R Int : 130 ms QRS Dur : 078 ms QT Int : 398 ms P-R-T Axes : 070 085 026 degrees QTc Int : 456 ms Normal sinus rhythm. Normal ECG When compared with ECG of 27-FEB-2019 06:29, No significant change was found Confirmed by Foster PRIDE, Robb Vela ([id number]) on 02/28/2019 8:33:34 AM
[2019-02-28] MEDS: ELIQUIS PO SCH ×2 (08:51→20:37)
[2019-02-28] MEDS: COLACE PO SCH ×2 (08:51→20:37)
[2019-02-28] MEDS: BETAPACE PO SCH ×2 (08:51→20:37)
[2019-02-28] MEDS: MIRALAX PO SCH (08:52)
[2019-02-28] MEDS ORDERED: VANCOMYCIN IV PER PHARMACY MISC SCH (09:00)
[2019-02-28] MEDS: VANCOMYCIN 1,550 MG in NS 250 ML IV SCH (11:11)
--- NOTE | 2019-03-01 01:34 | CONSULTATION ---
DATE OF CONSULTATION: 02/28/2019 REQUESTING PROVIDER: Dr. Mike Uribe. REASON FOR CONSULTATION: Worsening of pneumonia with lung cancer. HISTORY OF PRESENT ILLNESS: This is a 74-year-old, male with a medical history of atrial fibrillation, anemia, right lower lung cancer, COPD, tobacco abuse, atherosclerotic coronary disease, moderate mitral regurgitation, and chronic tobacco and alcohol use. He presented to the ER on 02/25/2019 with generalized abdominal discomfort, poor appetite, and scrotal swelling. Initial workup in the ER revealed right middle lobe and right lower lobe pneumonia. He has been admitted to the medical floor for further evaluation and management. CT on 02/26/2019 revealed extensive adenopathy throughout the mediastinum, right hilum, left supraclavicular region, and retroperitoneal knots in the abdomen; Extensive mass in the perihilar region of the right lung with separate mass in the right upper lobe; Lymphangitic spread of carcinoma and/or post obstructive pneumonitis is present on the right as well, which is likely invasion of the posterior chest wall, possibly related to previous thoracotomy in this location. Patient currently is sitting on the edge of the bed. He is on room air. He has no acute distress noted. He reports pain with coughing in the right lower chest radiating to the back. He has significant weight loss, about 15 to 20 pounds recently. He has chronic cough and dyspnea on exertion, but no wheezing, fever, chills, dizziness, hemoptysis, nausea, bowel habit change, or urination discomfort. He did have some generalized abdominal discomfort prior to admission which is improving at this time. PAST MEDICAL HISTORY: 1. Atrial fibrillation, he is, apparently, not taking any anticoagulants or antiplatelet prior to admission. 2. Anemia. 3. Right lower lobe lung cancer status post right lower lung lobectomy, chemotherapy and radiation. 4. COPD. 5. On going tobacco abuse. 6. Atherosclerotic coronary disease. 7. Moderate mitral regurgitation. PAST SURGICAL HISTORY: 1. Back surgery. 2. Right lower lung lobectomy. 3. Colonoscopies with polyp removal. SOCIAL HISTORY: The patient is single and lives at home. He currently smokes 1 pack per day since age 17. He drinks alcohol occasionally. He has no history of illicit drug use. FAMILY HISTORY: Positive for heart disease. ALLERGIES: No known drug allergies. REVIEW OF SYSTEMS: A 10-point review of systems was conducted and the pertinent's listed in the HPI, otherwise noncontributory. PHYSICAL EXAMINATION: Vital Signs: Temperature 98.2 degrees, blood pressure 98/62, pulse 78, respiratory rate 17, oxygen saturation 99% on room air. General: Chronically ill appealing, sitting on the edge of the bed with no acute distress noted. Very pleasant and cooperative. HEENT: Atraumatic, normocephalic. Trachea midline. Mucosa pink and moist. Respiratory: Breathing even and unlabored. Symmetrical excursion. Auscultation revealed diminished breathing sounds on the right side of the lung, otherwise clear. Cardiovascular: Regular rate and rhythm. Gastrointestinal: Soft, nontender, flat. Normoactive bowel sounds in all 4 quadrants. Extremities: No pedal edema. No cyanosis. No clubbing. Neurologic: Alert, oriented x3. Speech fluent. Follows commands. IMAGING DATA: Chest x-ray this morning showed worsening volume loss and consolidation of the right lung, particularly the lower and middle lobes with possible endobronchial obstruction. ASSESSMENT: This is a 74-year-old male with a medical history of atrial fibrillation, anemia, right lower lung cancer, COPD, tobacco abuse, atherosclerotic coronary disease, and moderate mitral regurgitation. He has been admitted to the medical floor since 02/25/2019 with right middle lobe to lower lobe pneumonia. 1. Right middle lobe and right lower lobe pneumonia, which appears worsening based on the chest x- ray from this morning. 2. Recurrent metastatic nonsmall cell lung cancer. 3. Chronic obstructive pulmonary disease. No exacerbation noted. 4. Ongoing tobacco abuse. PLAN: 1. Continue antibiotics and bronchodilators. Agree to add vancomycin to zosyn at this time. 2. Follow up with chest x-ray, if indicated. 3. Dr. Dowling is on board. 4. Daily smoking cessation education. 5. Continue GI and DVT prophylaxis. 6. Further recommendations pending hospital course. Thank you for the courtesy of this consult. Dictated by SHARLA Jacobo for Rashad Martin MD cc: SHARLA Jacobo MD Amit V. Vora, MD MTDD
[2019-03-01] MEDS: ZOSYN 3.375 GM in NS 50 ML IV SCH ×4 (03:13→21:51)
[2019-03-01] MEDS: ELIQUIS PO SCH ×2 (09:05→23:38)
[2019-03-01] MEDS: BETAPACE PO SCH ×2 (09:05→23:38)
[2019-03-01] MEDS: COLACE PO SCH ×2 (09:05→23:38)
[2019-03-01] MEDS: MIRALAX PO SCH (09:05)
--- NOTE | 2019-03-01 09:14 | PROGRESS NOTE ---
DATE: 02/28/2019 SUBJECTIVE: Mr. Motta is not doing well. A repeat chest x-ray shows worsening of the right lower lobe pneumonia, which is partly mixed with cancer. There could be some of obstructive element in it. We are going to add vancomycin on top of Zosyn. Get a pulmonary consult. Mr. Morgan is refusing for cancer treatment and he has not been getting any active cancer treatment. Even even today, he states he wants to wait and see. He wants to get the PET scan which is not possible over here. We will continue with the current management. cc: Mike Uribe MD
--- NOTE | 2019-03-01 09:48 | HEMO/ONC PROGRESS NOTE ---
DATE: 03/01/2019 SUBJECTIVE: The patient reports that he overall is feeling well. He does note some mild insomnia last night. His appetite is starting to improve. He reports a productive white cough. PHYSICAL EXAMINATION: Vital Signs: Temperature 97.7 degrees, respirations 22, pulse 75, blood pressure 110/63, O2 saturation 96% on room air. General: Pleasant male in no apparent distress. He is up in a chair. HEENT: Eyes, pupils equal, round, and reactive. Mouth: Oral mucosa normal. CV: Regular rate and rhythm. S1, S2. Pulmonary Exam: Clear to auscultation bilaterally. Abdomen: Soft, nontender, nondistended. Bowel sounds present in 4 quadrants. Musculoskeletal: No bony abnormalities. Skin: No rash. Neurological: Alert and oriented. LABS: No a.m. labs. Recent chest x-ray 02/28/2019 revealed worsening volume loss and consolidation of the right lung as described. ASSESSMENT AND PLAN: 1. Metastatic non-small cell lung cancer. He has had no treatment since 2019. He previously has opted to not receive any treatment. By comparing recent scans done at our office with last May 2017 it does appear that he has worsening disease, which would be expected given that he has been off of treatment for quite some time. We will plan to follow up outpatient to consider hospice versus palliative treatment after his acute infection resolves. 2. Pneumonia, currently on antibiotic therapy per primary care team. Most recent x-ray showed worsening. We will monitor. 3. Atrial fibrillation: On Eliquis. Cardiology on board. 4. Follow-up. We will plan to sign off on the weekend and are available as needed. We will return on Monday. Dictated by SHARLA Nguyen for Estelle Dowling MD cc: SHARLA Nguyen MD Amit V. Vora, MD I have seen and examined the patient and the note reflects my history, physical, assessment, and plan. Estelle MILLER
[2019-03-01] MEDS: VANCOMYCIN 1,550 MG in NS 250 ML IV SCH (10:47)
--- NOTE | 2019-03-01 14:11 | PROGRESS NOTE ---
DATE: 03/01/2019 Mr. Motta is recovering from pneumonia. Last x-ray, a chest x-ray showed worsening of the pneumonia. Hence, we added vancomycin on top of piperacillin. He has a Pulmonary consult. He has insomnia. Zolpidem 10 mg was not enough, so we changed it to 12.5 mg. Overall condition is otherwise stable. cc: Mike Uribe MD
[2019-03-01] MEDS: NORCO-10 PO PRN (14:59)
--- NOTE | 2019-03-01 20:57 | Diag Imaging Result Doc PS360 ---
EXAM: CT HEAD W/O CONTRAST INDICATION: pos cva TECHNIQUE: This exam was performed using automated exposure control, adjustment of mA or kV according to patient size, and/or use of iterative reconstruction technique. COMPARISON: None. FINDINGS: There is minimal subcortical low-attenuation in the right parietal lobe that can be seen on image 31 of series 2. This may represent mild subcortical white matter microangiopathy. However, subcortical focal infarct cannot completely be excluded as there is no prior study available for comparison. There is no other definite acute infarct given the limited sensitivity of CT versus MRI. There is no discrete intracranial mass, mass effect, or intracranial hemorrhage. The surrounding soft tissues and bony structures are essentially unremarkable. IMPRESSION: Mild focal low attenuation in the subcortical white matter of the right parietal lobe that could represent focal white matter microangiopathy. A subcortical acute infarct cannot completely be excluded, however. Please correlate clinically. Electronically signed by Srikanth Dobson 03/01/2019 8:55 PM
[2019-03-01] MEDS: NS 1,000 ML IV SCH (21:31)
[2019-03-01] MEDS ORDERED: ASPIRIN PR ONE (22:23)
[2019-03-01] MEDS: AMBIEN PO SCH (23:37)
--- NOTE | 2019-03-02 01:12 | PROGRESS NOTE ---
DATE: 03/01/2019 SUBJECTIVE: The patient had abrupt onset of right facial droop and right arm and leg weakness while he was talking to his daughter on the phone. She called the nurses station and nurses went in an evaluated, and noted that he had just been out in the [place]boza talking with him and he had gone back inside and sat down and was talking with his daughter on the phone, and she noted he quit talking to her on the phone and nurses were summoned, and went in an found him to have the right facial droop, and right arm and leg weakness, and he was sitting on the floor. The patient has paroxysmal atrial fibrillation, but has been in sinus rhythm. He has been on chronic Eliquis 2.5 mg b.i.d. He is in the hospital with lung cancer and possible obstructive pneumonia. He is on vancomycin and Zosyn. OBJECTIVE: Vital signs: Blood pressure has decreased slightly after the event, and we have started him on normal saline now to perfuse the brain and keep his blood pressure up. He is on sotalol for his heart rate and heart rate is good at 106, been running around 78, respirations 21, O2 saturation in the room with me on room air is 93%. Cardiovascular: Regular rate and rhythm. Lungs: Rhonchi on the right. Extremities: No calf tenderness, cords, or edema. Neurologic: Moderate right arm and leg weakness, and moderate to severe right lower facial droop. Mild-to- moderate right upper forehead wrinkle absence. The patient tries to converse but has some speech impairment with right facial droop. He is following commands well. IMAGING: CT scan has been obtained of the head without contrast and shows mild focal low attenuation in the subcortical white matter of the right parietal lobe, possibly representing focal white matter microangiopathy, although subcortical acute infarct cannot completely be excluded. LABORATORY DATA: Lab data last done on 02/26 was reviewed, showing white count 9.3, hemoglobin 10.8, platelets 174,000. Sodium 130, potassium 4.7, chloride 97, CO2 of 21, BUN 15, creatinine 0.8. Calcium 9.1, magnesium 2.1. ASSESSMENT: 1. Acute ischemic cerebrovascular accident with right facial droop and right arm and leg weakness, moderate. 2. Lung cancer. Followed by Dr. Dowling with consideration for hospice being given by her, the oncologist. 3. Obstructive right pneumonia. 4. Chronic obstructive pulmonary disease. 5. Paroxysmal atrial fibrillation. PLAN: Patient has been on the oral Eliquis and last received that at 2.5 mg around 8 p.m., just prior to the stroke-like symptoms. We will add rectal aspirin and keep him NPO currently, until we can further assess his swallowing abilities in the morning. For now, we will obtain frequent neurological checks and monitor for worsening, give him the rectal aspirin, and hold all oral medications. Continue the IV antibiotics and the nebulizer treatments. Family has been notified of his decline and are aware. cc: MD Mike Gonzalez MD
[2019-03-02] MEDS: ZOSYN 3.375 GM in NS 50 ML IV SCH ×4 (02:12→20:36)
[2019-03-02 07:54] LABS: BASO# 0.02 X1000 (0.0-0.2); BASO% 0.2 % (0.0-0.8); EOS# 0.02 X1000 (0.0-0.7); EOS% 0.2 % (0.0-10.0); HEMATOCRIT 30.7 % (42.0-52.0); IMM GRAN# 0.02 X1000 (0.0-0.04); IMM GRAN% 0.2 % (0.0-0.5); LYMPH# 1.04 X1000 (1.2-3.4); LYMPH% 11.6 % (20.5-51.1); MCH 29.7 PG (27-31); MCHC 32.6 g/dL (33-37); MCV 91.1 FL (81-99); MONO# 1.26 X1000 (0.11-0.59); MONO% 14.1 % (1.7-9.3); MPV 10.4 FL (7.4-10.4); NEUT# 6.57 X1000 (1.4-6.5); NEUT% 73.7 % (42.2-75.2); PLT 152 X1000 (130-400); RBC 3.37 XMIL (4.7-6.1); RDW 13.8 % (11.5-14.5); WBC 8.93 X1000 (4.8-10.8)
[2019-03-02] MEDS: NS 1,000 ML IV SCH (08:06)
[2019-03-02] MEDS: BETAPACE PO SCH ×2 (08:07→20:36)
[2019-03-02] MEDS: COLACE PO SCH ×2 (08:07→20:36)
[2019-03-02] MEDS: MIRALAX PO SCH (08:07)
[2019-03-02] MEDS: ELIQUIS PO SCH ×2 (08:07→20:36)
[2019-03-02 08:13] LABS: AGAP 12; BUN 11 mg/dL (8-22); CALCIUM 8.5 mg/dL (8.8-10.2); CHLORIDE 99 mmol/L (98-107); COSMO 266; CREATININE 0.6 mg/dL (0.7-1.2); ESTIMATED GFR > 60; GLUCOSE 107 mg/dL (70-104); POTASSIUM 4.1 mmol/L (3.5-5.1); SODIUM 133 mmol/L (136-145); TCO2 22 mmol/L (25-35)
--- NOTE | 2019-03-02 08:46 | Diag Imaging Result Doc PS360 ---
EXAM: CHEST-1 VIEW INDICATION: SOB TECHNIQUE: One view COMPARISON: 02/28/2019 FINDINGS: Volume loss and dense consolidation on the right with a mid and basilar predominance is approximately stable. No new consolidation is identified. Cardiac silhouette is stable. IMPRESSION: Stable chest. Electronically signed by Srikanth Dobson 03/02/2019 8:44 AM
--- NOTE | 2019-03-02 09:57 | PROGRESS NOTE ---
DATE: 03/02/2019 SUBJECTIVE: The patient is sleeping but is arousable. He continues to have about the same amount of right facial droop and right arm and leg weakness, which is moderate to moderate to severe. The patient is unable to form words correctly. He has some expressive aphasia. The patient is able to follow commands and is responsive. OBJECTIVE: Afebrile, pulse 76, respirations 19, blood pressure 111/59, O2 saturation 94% on room air.CV: RRR without definite murmur. Lungs: Mild rhonchi right lung field. Left lung field clear to auscultation. Abdomen: Nontender, nondistended. Extremities: No calf tenderness, cords or edema. Neuro: The patient has moderate right facial droop, moderate right arm and leg weakness, expressive aphasia, moderate to severe. LAB DATA: Sodium 133, potassium 4.1, chloride 99, CO2 22, BUN 11, creatinine 0.6, glucose 107, calcium 8.5. White count 8.9, hemoglobin 10, platelets 152,000. Chest x-ray this morning is stable showing volume loss and dense consolidation on the right with mid and basilar predominance. No new consolidations. Cardiac silhouette stable. ASSESSMENT: 1. Ischemic cerebrovascular accident with right facial droop and right arm and leg weakness and expressive aphasia. 2. Lung cancer, followed by Dr. Dowling with overall poor prognosis. 3. Obstructive right pneumonia. 4. COPD. 5. Paroxysmal atrial fibrillation on chronic Eliquis treatment, last dose around 8 p.m. last evening. PLAN: He had received some rectal aspirin last evening. We will continue that daily. We are going to do a bedside swallowing evaluation and if he is able to tolerate his medications, we will resume the oral medications he is on to include the Eliquis. Continue neurological checks. We will keep him n.p.o. at this point for fear of aspiration. Continue IV antibiotics of vancomycin and Zosyn. Continue nebulizer treatments, nicotine patch. cc: MD Mike Gonzalez MD
[2019-03-02] MEDS ORDERED: POTASSIUM CHLORIDE 10 MEQ in NS 1,000 ML IV SCH (10:00)
[2019-03-02] MEDS: ASPIRIN PR SCH (11:15)
[2019-03-02] MEDS: VANCOMYCIN 1,550 MG in NS 250 ML IV SCH (11:18)
[2019-03-02] MEDS: ATROVENT NEB INH PRN (11:50)
[2019-03-02] MEDS: XOPENEX NEB INH PRN (11:50)
[2019-03-02] MEDS ORDERED: LASIX IV ONE (17:57)
[2019-03-02] MEDS: AMBIEN PO SCH (20:36)
[2019-03-03] MEDS: ZOSYN 3.375 GM in NS 50 ML IV SCH ×4 (02:20→19:58)
[2019-03-03 07:34] LABS: BASO# 0.03 X1000 (0.0-0.2); BASO% 0.2 % (0.0-0.8); HEMATOCRIT 32.7 % (42.0-52.0); HEMOGLOBIN 10.8 g/dL (14.0-18.0); IMM GRAN# 0.05 X1000 (0.0-0.04); IMM GRAN% 0.4 % (0.0-0.5); LYMPH# 1.54 X1000 (1.2-3.4); LYMPH% 12.5 % (20.5-51.1); MCV 90.8 FL (81-99); MONO# 1.41 X1000 (0.11-0.59); MONO% 11.4 % (1.7-9.3); MPV 10.4 FL (7.4-10.4); NEUT# 9.29 X1000 (1.4-6.5); NEUT% 75.5 % (42.2-75.2); PLT 175 X1000 (130-400); RDW 14.2 % (11.5-14.5); WBC 12.32 X1000 (4.8-10.8)
[2019-03-03 08:14] LABS: AGAP 15; BUN 17 mg/dL (8-22); CALCIUM 8.4 mg/dL (8.8-10.2); CHLORIDE 96 mmol/L (98-107); COSMO 270; CREATININE 1.2 mg/dL (0.7-1.2); ESTIMATED GFR > 60; GLUCOSE 98 mg/dL (70-104); POTASSIUM 3.7 mmol/L (3.5-5.1); SODIUM 134 mmol/L (136-145); TCO2 23 mmol/L (25-35)
[2019-03-03] MEDS: BETAPACE PO SCH ×2 (10:56→19:59)
[2019-03-03] MEDS: ELIQUIS PO SCH ×2 (10:56→19:59)
[2019-03-03] MEDS: COLACE PO SCH ×2 (10:57→19:59)
[2019-03-03] MEDS: MIRALAX PO SCH (10:57)
[2019-03-03] MEDS: ASPIRIN PR SCH (10:58)
[2019-03-03] MEDS: ASPIRIN PO SCH (10:59)
--- NOTE | 2019-03-03 11:04 | PROGRESS NOTE ---
DATE: 03/03/2019 SUBJECTIVE: Patient is unchanged generally in regard to right facial weakness, which is moderate to severe, and right arm and leg weakness is moderate. We have given him some IV fluids to try to help keep his blood pressure up and perfuse the brain in light of his ischemic CVA, but he developed some mild fluid overload yesterday, and we stopped that and gave him some Lasix 60 mg, which was successful in eliminating that difficulty. He is saline lock now. Fortunately, bedside swallowing test was good, and he is on mechanical soft diet now and tolerating that well. We put him back on his oral medications to include the Eliquis, and he is going to be switched from rectal aspirin to daily aspirin 81 mg daily. OBJECTIVE: Vital signs: Afebrile, pulse 82, respirations 18, blood pressure 119/83, O2 saturation on 2 L is 97%. Cardiovascular: Regular rate and rhythm. Lungs: Decreased breath sounds on the right compared to the left. Distant breath sounds overall. Abdomen: Soft, nontender, nondistended. Extremities: No calf tenderness, cords or edema. There is moderate weakness to the right arm and leg and moderate to severe weakness of right face, and he does have some difficulty with his speech but is able to answer some questions, and he follows commands well. He is alert. LABORATORY DATA: White count 12.3, hemoglobin 10.8, platelets 175,000. Sodium 134, potassium 3.7, chloride 96, CO2 is 23, BUN is 17, creatinine 1.2, calcium 8.4. ASSESSMENT: 1. History of ischemic cerebrovascular accident a couple days ago and now with right facial droop, right arm and leg weakness and expressive aphasia. 2. Lung cancer on the right. 3. Obstructive right pneumonia. 4. Chronic obstructive pulmonary disease. 5. Paroxysmal atrial fibrillation on chronic Eliquis treatment per Cardiology. PLAN: Continue Eliquis and aspirin and IV antibiotics of vancomycin and Zosyn. He is on nebulizer treatments, nicotine patch. Physical Therapy is going to work with the patient in regard to his right arm and leg weakness. Consider speech pathology evaluation tomorrow when Dr. Uribe is back. cc: MD Mike Gonzalez MD
[2019-03-03] MEDS: VANCOMYCIN 1,550 MG in NS 250 ML IV SCH (11:52)
[2019-03-03] MEDS: ATROVENT NEB INH PRN (16:36)
[2019-03-03] MEDS: XOPENEX NEB INH PRN (16:36)
[2019-03-03] MEDS: AMBIEN PO SCH (19:59)
[2019-03-04] MEDS: ZOSYN 3.375 GM in NS 50 ML IV SCH ×4 (02:22→20:46)
[2019-03-04] MEDS: ELIQUIS PO SCH ×2 (09:45→21:04)
[2019-03-04] MEDS: ASPIRIN PO SCH (09:45)
[2019-03-04] MEDS: MIRALAX PO SCH (09:45)
[2019-03-04] MEDS: BETAPACE PO SCH ×2 (09:45→21:03)
[2019-03-04] MEDS: COLACE PO SCH ×2 (09:45→21:04)
--- NOTE | 2019-03-04 10:05 | PROGRESS NOTE ---
DATE: 03/04/2019 Mr. Motta's chest x-ray does not seem to show much improvement. It is about the same. He may have mild pleural effusion on the right side. He developed a stroke with weakness in the right side with aphasia. He is on apixaban. We are going to try to get the carotid flow studies on him, and he is getting physical therapy. His overall prognosis is poor, and we need to start getting rehab. I have to talk to the family before I make the decision. cc: Mike Uribe MD
[2019-03-04] MEDS: VANCOMYCIN 1,550 MG in NS 250 ML IV SCH (14:53)
--- NOTE | 2019-03-04 18:28 | HEMO/ONC PROGRESS NOTE ---
DATE: 03/04/2019 CHIEF COMPLAINT: According to the nurses reports, the patient had a stroke over the weekend. HISTORY OF PRESENT ILLNESS: Mr. Motta was in the hospital recovering from pneumonia and wanted to go home on Monday. Apparently, sometime over the weekend, he developed aphagia, right-sided weakness, and was found to have a stroke. He is being evaluated by speech therapy at this time. He is on mechanically soft diet. He has difficulty communicating clearly at this time. PHYSICAL EXAMINATION: Vital Signs: Temperature 98 degrees, pulse 70, respiratory rate 16, blood pressure 149/83, and O2 saturation is 95% on room air. General: This is a chronically ill- appearing man in no acute distress. He is unaccompanied at the time of visit today. Eyes: Anicteric. Cardiovascular: Regular rate and rhythm. Normal S1, S2. No murmurs, rubs, or gallops. Pulmonary: Lungs clear to auscultation bilaterally without wheezes, rales, or rhonchi. Abdomen: Soft, nontender, nondistended with normoactive bowel sounds. Neurologic: Patient has right-sided facial droop and garbled speech. He is alert and oriented x1. Examination otherwise unremarkable. LABORATORY DATA: Sodium 134, potassium 3.7, chloride 96, bicarbonate 23, BUN 17, creatinine 1.2. White count 12.3, platelet count 275,000. ASSESSMENT AND PLAN: 1. Metastatic lung cancer: The patient has been off treatment for some time. Given his recent event, he may not be able to receive any chemotherapy. I agree with his current management of his stroke symptoms and reassess him as an outpatient. 2. Acute stroke: Further workup ongoing. Consider rehab stay once he leaves the hospital. Reassess at return visit. 3. Pneumonia: Clinically improving. Continue current antibiotic therapy. Reassess over the next few days. cc: MD Mike Lowry MD
[2019-03-05] MEDS: ELIQUIS PO SCH ×2 (02:29→08:15)
[2019-03-05] MEDS: ZOSYN 3.375 GM in NS 50 ML IV SCH ×4 (02:46→20:28)
[2019-03-05] MEDS: AMBIEN PO SCH (02:46)
--- NOTE | 2019-03-05 07:32 | Diag Imaging Result Doc PS360 ---
EXAM: CHEST-1 VIEW INDICATION: SOB TECHNIQUE: One view COMPARISON: 03/02/2019 FINDINGS: Volume loss and dense consolidation at the mid and lower lung zone on the right have not changed. No new consolidation is identified. Cardiac silhouette is stable. IMPRESSION: Stable chest. Electronically signed by Srikanth Dobson 03/05/2019 7:30 AM
[2019-03-05] MEDS: MIRALAX PO SCH (08:14)
[2019-03-05] MEDS: COLACE PO SCH ×2 (08:14→21:29)
[2019-03-05] MEDS: BETAPACE PO SCH ×2 (08:14→21:29)
[2019-03-05] MEDS: ASPIRIN PO SCH (08:15)
[2019-03-05] MEDS: XOPENEX NEB INH PRN ×3 (08:33→15:19)
[2019-03-05] MEDS: ATROVENT NEB INH PRN ×3 (08:33→15:19)
--- NOTE | 2019-03-05 10:58 | PROGRESS NOTE ---
DATE: 03/05/2019 Mr. Morgan is in about the same general condition. His carotid report is not back yet. He is improving as far as the stroke is concerned. He can raise arm up. He still has aphasia. He has weak hand test and balance engineer on the right side. He s recovering from pneumonia. I am going to get the chest x- ray first thing in the morning tomorrow. We will also keep him on sepsis protocol. -8 cc: Mike Uribe MD
[2019-03-05 12:40] LABS: BASO# 0.02 X1000 (0.0-0.2); BASO% 0.2 % (0.0-0.8); HEMATOCRIT 30.5 % (42.0-52.0); HEMOGLOBIN 9.8 g/dL (14.0-18.0); IMM GRAN# 0.03 X1000 (0.0-0.04); IMM GRAN% 0.3 % (0.0-0.5); LYMPH# 1.66 X1000 (1.2-3.4); MCH 29.7 PG (27-31); MCHC 32.1 g/dL (33-37); MCV 92.4 FL (81-99); MONO# 1.17 X1000 (0.11-0.59); MONO% 9.9 % (1.7-9.3); MPV 10.2 FL (7.4-10.4); NEUT# 8.94 X1000 (1.4-6.5); NEUT% 75.6 % (42.2-75.2); PLT 152 X1000 (130-400); RDW 14.7 % (11.5-14.5); WBC 11.82 X1000 (4.8-10.8)
[2019-03-05 12:47] LABS: INR 1.44; PROTIME 17.8 Seconds (11.0-16.0)
[2019-03-05 12:48] LABS: PTT 29.9 Seconds (22.3-41.8)
[2019-03-05 12:55] LABS: AGAP 12; ALB/GLOB RATIO 0.8; ALKALINE PHOSPHATASE 70 U/L (32-122); BUN 34 mg/dL (8-22); CALCIUM 8.9 mg/dL (8.8-10.2); CHLORIDE 101 mmol/L (98-107); CK PROFILE 47 U/L (24-204); COSMO 285; CREATININE 0.9 mg/dL (0.7-1.2); ESTIMATED GFR > 60; GLUCOSE 121 mg/dL (70-104); GOT 24 U/L (10-34); GPT 14 U/L (10-44); POTASSIUM 3.8 mmol/L (3.5-5.1); SODIUM 138 mmol/L (136-145); TCO2 25 mmol/L (25-35); TOTAL BILIRUBIN 0.62 mg/dL (0.20-1.00); TOTAL PROTEIN 6.8 g/dL (6.3-8.3)
[2019-03-05] MEDS: VANCOMYCIN 1,550 MG in NS 250 ML IV SCH (14:41)
[2019-03-05 19:19] LABS: URINE SOURCE CATH
[2019-03-05 19:30] LABS: BILIRUBIN URINE NEGATIVE (NEGATIVE); BLOOD URINE TRACE (NEGATIVE); COLOR YELLOW; GLUCOSE URINE NEGATIVE (NEGATIVE); KETONE URINE NEGATIVE (NEGATIVE); LEUKOCYTES URINE NEGATIVE (NEGATIVE); NITRITE URINE NEGATIVE (NEGATIVE); PROTEIN URINE TRACE mg/dL (NEGATIVE); SP GRAVITY URINE 1.018; TURBIDITY URINE CLEAR (CLEAR); UROBILINOGEN URINE NORMAL (NORMAL)
[2019-03-05 19:31] LABS: UR EPITHELIAL CELLS <10 /HPF (<10); URINE BACTERIA NEGATIVE /HPF; URINE RBC <10 /HPF (<10); URINE WBC <10 /HPF (<10)
[2019-03-06] MEDS: ZOSYN 3.375 GM in NS 50 ML IV SCH ×4 (02:27→21:08)
[2019-03-06] MEDS: AMBIEN PO SCH ×2 (02:28→22:18)
[2019-03-06 07:48] LABS: BASO# 0.02 X1000 (0.0-0.2); BASO% 0.1 % (0.0-0.8); HEMATOCRIT 28.8 % (42.0-52.0); HEMOGLOBIN 9.1 g/dL (14.0-18.0); IMM GRAN# 0.05 X1000 (0.0-0.04); IMM GRAN% 0.3 % (0.0-0.5); LYMPH# 1.75 X1000 (1.2-3.4); MCH 29.6 PG (27-31); MCHC 31.6 g/dL (33-37); MCV 93.8 FL (81-99); MONO# 1.44 X1000 (0.11-0.59); MONO% 9.9 % (1.7-9.3); MPV 10.6 FL (7.4-10.4); NEUT# 11.35 X1000 (1.4-6.5); NEUT% 77.7 % (42.2-75.2); PLT 140 X1000 (130-400); RBC 3.07 XMIL (4.7-6.1); RDW 14.9 % (11.5-14.5); WBC 14.61 X1000 (4.8-10.8)
[2019-03-06] MEDS: ATROVENT NEB INH PRN ×4 (07:56→19:24)
[2019-03-06] MEDS: XOPENEX NEB INH PRN ×4 (07:56→19:24)
[2019-03-06 08:01] LABS: AGAP 12; BUN 37 mg/dL (8-22); CALCIUM 8.9 mg/dL (8.8-10.2); CHLORIDE 104 mmol/L (98-107); COSMO 289; CREATININE 0.9 mg/dL (0.7-1.2); ESTIMATED GFR > 60; GLUCOSE 108 mg/dL (70-104); POTASSIUM 3.9 mmol/L (3.5-5.1); SODIUM 140 mmol/L (136-145); TCO2 24 mmol/L (25-35)
[2019-03-06 08:31] LABS: HYPOCHROM 1+; LYMPHS 10 % (21-51); MONO 6 % (1-9); SEGS 84 % (42-75)
--- NOTE | 2019-03-06 08:34 | Diag Imaging Result Doc PS360 ---
EXAM: CHEST-2 VIEWS HISTORY: pneumonia follow up TECHNIQUE: Chest two views COMPARISON: 03/05/2019 FINDINGS: Dense right mid and lower lung infiltrates with a right-sided pleural effusion. The left lung remains well expanded and clear. Surgical clips in the right hilum. No left pleural effusion. IMPRESSION: Stable chest. Electronically signed by Damian Luna 03/06/2019 8:31 AM
[2019-03-06] MEDS: MIRALAX PO SCH (09:02)
[2019-03-06] MEDS: BETAPACE PO SCH ×2 (09:02→21:09)
[2019-03-06] MEDS: ASPIRIN PO SCH (09:02)
[2019-03-06] MEDS: COLACE PO SCH ×2 (09:03→21:09)
[2019-03-06] MEDS: ELIQUIS PO SCH ×2 (09:03→21:09)
[2019-03-06] MEDS: VANCOMYCIN 1,550 MG in NS 250 ML IV SCH (17:52)
--- NOTE | 2019-03-06 18:30 | Carotid Study ---
DATE: 03/04/2019 DESCRIPTION OF STUDY: This is the bilateral duplex and color flow imaging of the carotid arteries performed using a GE vivid E9 ultrasound SYSTEM with a 9-LD transducer. REFERRING PHYSICIAN: Dr. Uribe HARDWOOD FLOOR FINISHER: Suyapa Payne RVT INDICATIONS: CVA-stroke. FINDINGS: The right ICA/CCA ratio is 1.04 corresponding to percent stenosis of 0% to 39%. The left ICA/CCA ratio is 1.24 corresponding to percent stenosis of 0% to 39%. INTERPRETATION: Mild atherosclerotic disease of the distal common and internal carotid arteries bilaterally without evidence of a hemodynamically significant lesion in either carotid system. cc: MD Mike Couch MD
[2019-03-07] MEDS: ZOSYN 3.375 GM in NS 50 ML IV SCH ×4 (02:09→20:17)
--- NOTE | 2019-03-07 05:25 | ECHO REPORT ---
ORDER DATE: 03/06/2019 MEASUREMENTS: Septal thickness 1.0, left ventricular internal diameter diastole 4.6, posterior wall thickness 1.0, left ventricular internal diameter in systole 3.1, aortic root 3.4, and left atrium 4.5. SUMMARY: 1. Fair quality study. 2. Aortic valve is trileaflet and opens normally on 2-dimensional images. Peak gradient across aortic valve is less than 10 mmHg. The mitral valve demonstrates mild bileaflet prolapse. There is mild to moderate mitral regurgitation. Tricuspid and pulmonic valves are without evidence of structural abnormality with mild tricuspid regurgitation and trace pulmonic insufficiency. The estimated systolic PA pressure by Doppler is 40 to 45 mmHg suggesting mild pulmonary hypertension. The aortic root is normal in size. 3. Normal left ventricular dimensions demonstrated. Estimated left ventricular ejection fraction appears to be at least 60%. No regional wall motion abnormalities are evident. Left atrium is mildly enlarged. Right atrium and right ventricle are normal in size with normal right ventricular systolic function. 4. No pericardial effusion. 5. Appearance of inferior vena cava suggests normal central venous pressure. CONCLUSIONS: 1. Mitral valve prolapse with auzl-gw-robrthac mitral regurgitation. 2. Mild tricuspid regurgitation with mild pulmonary hypertension by Doppler. 3. Normal left ventricular systolic function without wall motion abnormality evident. 4. Mild left atrial enlargement. cc: MD Rashad Pratt MD Amit V. Vora, MD
--- NOTE | 2019-03-07 10:07 | PROGRESS NOTE ---
DATE: 03/07/2019 Mr. Motta has some improvement in his right arm strength. He has about grade 3-4 power in the right lower extremity. However, he still is aphasic. His oral intake is somewhat poor. He is getting IV vancomycin as well as Zosyn for his pneumonia which is not improving that well mostly on account of the bronchial obstruction caused by the cancer. We will continue to give him the IV antibiotics. He is to be transferred to [facility]. However, we are waiting for the insurance approval. -2 cc: Mike Uribe MD
[2019-03-07] MEDS: COLACE PO SCH ×2 (10:47→20:20)
[2019-03-07] MEDS: BETAPACE PO SCH ×2 (10:47→20:20)
[2019-03-07] MEDS: ELIQUIS PO SCH (10:47)
[2019-03-07] MEDS: ASPIRIN PO SCH (10:47)
[2019-03-07] MEDS: MIRALAX PO SCH (10:47)
[2019-03-07] MEDS ORDERED: SODIUM CHLORIDE 0.9% INJ SCH (11:30)
[2019-03-07] MEDS ORDERED: MEDROL DOSEPAK PO SCH (13:30)
[2019-03-07] MEDS: PROTONIX IV SCH (13:31)
[2019-03-07 16:47] LABS: HEMATOCRIT 26.5 % (42.0-52.0); HEMOGLOBIN 8.4 g/dL (14.0-18.0); RBC 2.76 XMIL (4.7-6.1); WBC 18.46 X1000 (4.8-10.8)
[2019-03-07 16:48] LABS: BASO# 0.02 X1000 (0.0-0.2); BASO% 0.1 % (0.0-0.8); IMM GRAN# 0.08 X1000 (0.0-0.04); IMM GRAN% 0.4 % (0.0-0.5); LYMPH# 2.13 X1000 (1.2-3.4); LYMPH% 11.5 % (20.5-51.1); MCH 30.4 PG (27-31); MCHC 31.7 g/dL (33-37); MONO# 1.41 X1000 (0.11-0.59); MONO% 7.6 % (1.7-9.3); NEUT# 14.82 X1000 (1.4-6.5); NEUT% 80.4 % (42.2-75.2); PLT 114 X1000 (130-400); RDW 15.5 % (11.5-14.5)
[2019-03-07] MEDS: VANCOMYCIN 1,550 MG in NS 250 ML IV SCH (17:29)
[2019-03-07] MEDS: MEDROL PO SCH ×2 (17:29→20:20)
[2019-03-07] MEDS: AMBIEN PO SCH (20:20)
--- NOTE | 2019-03-07 20:27 | EKG Report ---
Test Performed on : 03/07/2019 7:06:08 PM Test Reason : abnormal rhythm Blood Pressure : / mmHG Vent. Rate : 071 BPM Atrial Rate : 071 BPM P-R Int : 120 ms QRS Dur : 064 ms QT Int : 456 ms P-R-T Axes : 054 073 054 degrees QTc Int : 495 ms Normal sinus rhythm. Nonspecific ST and T wave abnormality (New lateral T wave flattening) Abnormal ECG When compared with ECG of 28-FEB-2019 07:00, Nonspecific T wave abnormality now evident in Anterolateral leads Confirmed by Foster PRIDE, Robb Vela ([id number]) on 03/07/2019 10:19:54 PM
[2019-03-08] MEDS: ZOSYN 3.375 GM in NS 50 ML IV SCH ×4 (02:30→22:22)
[2019-03-08 07:39] LABS: EOS# 0.04 X1000 (0.0-0.7); EOS% 0.3 % (0.0-10.0); HEMATOCRIT 23.8 % (42.0-52.0); HEMOGLOBIN 7.4 g/dL (14.0-18.0); IMM GRAN# 0.05 X1000 (0.0-0.04); IMM GRAN% 0.3 % (0.0-0.5); LYMPH# 1.51 X1000 (1.2-3.4); LYMPH% 9.9 % (20.5-51.1); MCHC 31.1 g/dL (33-37); MCV 96.4 FL (81-99); MONO% 5.9 % (1.7-9.3); MPV 11.1 FL (7.4-10.4); NEUT# 12.71 X1000 (1.4-6.5); NEUT% 83.6 % (42.2-75.2); PLT 133 X1000 (130-400); RBC 2.47 XMIL (4.7-6.1); RDW 15.9 % (11.5-14.5); WBC 15.21 X1000 (4.8-10.8)
[2019-03-08] MEDS: ATROVENT NEB INH PRN ×5 (07:55→22:45)
[2019-03-08] MEDS: XOPENEX NEB INH PRN ×5 (07:55→22:45)
[2019-03-08] MEDS: COLACE PO SCH ×2 (09:44→22:23)
[2019-03-08] MEDS: MIRALAX PO SCH (09:44)
[2019-03-08] MEDS: ASPIRIN PO SCH (09:45)
[2019-03-08] MEDS: BETAPACE PO SCH ×2 (09:45→22:23)
[2019-03-08] MEDS: MEDROL PO SCH ×4 (09:45→22:22)
[2019-03-08] MEDS ORDERED: NS 500 ML IV ONE (10:57)
[2019-03-08] MEDS ORDERED: D5 1/2 NS + KCL 10 MEQ 1,000 ML IV SCH (11:15)
[2019-03-08] MEDS: PROTONIX IV SCH (12:25)
--- NOTE | 2019-03-08 12:26 | PROGRESS NOTE ---
DATE: 03/08/2019 ADDENDUM: Mr. Motta is anemic. We are going to transfuse him at least 1 unit of blood. He has dehydration. We will start some D5 half normal saline. He is already getting injection Protonix. I am also going to get a GI consult with Dr. Vasquez. cc: Mike Uribe MD
--- NOTE | 2019-03-08 12:46 | PROGRESS NOTE ---
DATE: 03/08/2019 Mr. Motta is somewhat less responsive today. He still has food in his mouth. It is hard for him to swallow. He has had some GI bleeding, had stool positive for occult blood. He had dark tarry stools. The hemoglobin has dropped from 8.4 to 7.4. Basically, it was 10.8 about 5 days ago, so he is steadily, slowly bleeding, probably in his stomach or large-intestine. His condition is going down. He was supposed to be transferred to [facility] facility today. However, the GI bleeding episode came yesterday. Moreover, he had an episode of short run of ventricular tachycardia. This morning his EKG shows that he is in sinus rhythm. Overall condition is otherwise very guarded. I talked to his brother yesterday about his condition. I have not talked to any other family members, except one time his daughter called me and actually she wanted to get the [facility] papers filled out for me. His prognosis appears to be poor. We will continue to watch him closely. cc: Mike Uribe MD
[2019-03-08] MEDS: AMBIEN PO SCH (22:23)
--- NOTE | 2019-03-08 22:26 | PULMONOLOGY PROGRESS NOTE ---
DATE: 03/08/2019 SUBJECTIVE: The patient is awake and alert. He has some expressive aphasia and some frustration when attempting to speak. OBJECTIVE: Vital Signs: The patient has been afebrile for the last 24 hours. Blood pressure 108/52, heart rate 62, respiratory rate 15, oxygen saturation 96% on 2 L per nasal cannula. HEENT: Pupils are equal and reactive. Oropharynx is clear. Neck: Supple. Chest: Reveals diminished breath sounds right base. Cardiac: Regular rate. Normal S1, normal S2 with 2/6 diastolic murmur at left lower sternal border. Abdomen: Soft. Extremities: Reveal muscle wasting. LABORATORIES: White blood count 15.21, hemoglobin 7.4, platelet count 133,000. No new x-ray data. IMPRESSION: A 74-year-old with 1. Lung cancer with extensive disease in the right hemithorax. The patient has metastatic disease per Oncology report. 2. Anemia. 3. Weight loss. 4. Hypoxemic respiratory failure. 5. Poor prognosis. PLAN: 1. Continue oxygen for hypoxemic respiratory failure. 2. Consider transitioning patient to oral antibiotics. 3. Anticipate transfusion for anemia. 4. Prognosis is poor. cc: MD Mike Colbert MD
[2019-03-08] MEDS ORDERED: NS 500 ML ONE (22:30)
[2019-03-09] MEDS: ZOSYN 3.375 GM in NS 50 ML IV SCH ×5 (03:15→21:22)
[2019-03-09] MEDS ORDERED: LASIX IV ONE (07:24)
[2019-03-09] MEDS: XOPENEX NEB INH PRN ×5 (07:27→23:37)
[2019-03-09] MEDS: ATROVENT NEB INH PRN ×5 (07:28→23:37)
[2019-03-09 08:20] LABS: BASO# 0.01 X1000 (0.0-0.2); HEMATOCRIT 27.2 % (42.0-52.0); HEMOGLOBIN 8.5 g/dL (14.0-18.0); IMM GRAN% 0.5 % (0.0-0.5); LYMPH# 1.74 X1000 (1.2-3.4); LYMPH% 8.3 % (20.5-51.1); MCH 29.8 PG (27-31); MCHC 31.3 g/dL (33-37); MCV 95.4 FL (81-99); MONO# 2.12 X1000 (0.11-0.59); MONO% 10.1 % (1.7-9.3); MPV 11.2 FL (7.4-10.4); NEUT# 17.01 X1000 (1.4-6.5); NEUT% 81.1 % (42.2-75.2); PLT 110 X1000 (130-400); RBC 2.85 XMIL (4.7-6.1); RDW 17.1 % (11.5-14.5); WBC 20.98 X1000 (4.8-10.8)
[2019-03-09 08:46] LABS: CHLORIDE 103 mmol/L (98-107); SODIUM 138 mmol/L (136-145); TCO2 22 mmol/L (25-35)
[2019-03-09 08:47] LABS: AGAP 13; BUN 33 mg/dL (8-22); CALCIUM 8.8 mg/dL (8.8-10.2); COSMO 283; GLUCOSE 93 mg/dL (70-104)
[2019-03-09 09:14] LABS: ESTIMATED GFR > 60
[2019-03-09] MEDS: COLACE PO SCH ×2 (10:40→20:33)
[2019-03-09] MEDS: D5 1/2 NS + KCL 10 MEQ 1,000 ML IV SCH (10:40)
[2019-03-09] MEDS: MIRALAX PO SCH (10:40)
[2019-03-09] MEDS: ASPIRIN PO SCH (10:40)
[2019-03-09] MEDS: MEDROL PO SCH ×4 (10:41→20:33)
[2019-03-09] MEDS: BETAPACE PO SCH ×2 (10:41→20:33)
--- NOTE | 2019-03-09 11:31 | PROGRESS NOTE ---
DATE: 03/09/2019 SUBJECTIVE: Mr. Motta was very short of breath early this morning. He was volume overloaded and we gave him Lasix, which has helped him significantly. He has hypoxemic respiratory failure, BUN was 33, creatinine was 1.0, and hemoglobin has come up to 8.5, hematocrit 27.2. His white count is 26.98, respiratory rate earlier was 28, however it is better now. He had a stroke on the right side with aphasia. His overall prognosis is poor on account of metastatic lung cancer and the stroke. We will continue his IV antibiotics at the present time. He has extensive disease in the right lung with metastases, almost up to pneumonia, and it appears like right lung is almost getting nonfunctional. cc: Mike Uribe MD
[2019-03-09] MEDS ORDERED: VANCOMYCIN 1,500 MG in NS 250 ML IV SCH (12:00)
[2019-03-09] MEDS: PROTONIX IV SCH (12:26)
--- NOTE | 2019-03-09 14:48 | PULMONOLOGY PROGRESS NOTE ---
DATE: 03/09/2019 SUBJECTIVE: The patient is awake and alert. Nurse reports he had increased shortness of breath this morning but has significantly improved with a dose of Lasix. OBJECTIVE: Vital Signs: The patient has been afebrile for the last 24 hours. Blood pressure 103/73, heart rate 64, respiratory rate 22, oxygen saturation 100%. HEENT: Pupils are equal and reactive. Oropharynx appears clear. Neck: Supple. Chest: Reveals significant decrease in breath sounds throughout the right hemithorax. Cardiac: S1-S2. Abdomen: Soft. Extremities: Without edema. LABORATORIES: White blood count 20.98, hemoglobin 8.5, platelet count 110,000. No new chest x- ray data. IMPRESSION: 74-year-old with 1. Metastatic lung cancer with extensive cancer burden in the right hemithorax. 2. Anemia. 3. Weight loss. 4. Hypoxemic respiratory failure. PLAN: 1. Agree with diuresis as you have done. 2. Consider oral antibiotics. 3. Prognosis is poor. cc: MD Mike Colbert MD
[2019-03-09] MEDS: AMBIEN PO SCH (20:33)
[2019-03-10] MEDS: NORCO-10 PO PRN (01:48)
[2019-03-10] MEDS: ZOSYN 3.375 GM in NS 50 ML IV SCH ×3 (03:22→08:36)
[2019-03-10] MEDS: MIRALAX PO SCH (08:19)
[2019-03-10] MEDS: BETAPACE PO SCH ×2 (08:21→21:43)
[2019-03-10] MEDS: MEDROL PO SCH ×3 (08:22→21:43)
[2019-03-10] MEDS: ASPIRIN PO SCH (08:22)
[2019-03-10] MEDS: COLACE PO SCH ×2 (08:22→21:43)
--- NOTE | 2019-03-10 12:04 | PROGRESS NOTE ---
DATE: 03/10/2019 Mr. Motta is recovering from a stroke on the right side. He is somewhat drowsy this morning. His lungs reveal very poor air entry on the right side. He has pneumonia with pleural effusion, with metastatic lung cancer and primary cancer on the right side, with possibly obstructive pneumonia. We are going to discontinue his IV antibiotics which he has been on for over 10 days and we will put him on Ceftin 500 mg twice a day. Overall prognosis is poor. If they will not accept him, then we will discharge him to [facility] tomorrow. cc: Mike Uribe MD
[2019-03-10] MEDS: PROTONIX IV SCH (14:01)
--- NOTE | 2019-03-10 14:46 | GASTROENTEROLOGY CONSULTATION ---
DATE: 03/10/2019 REASON FOR CONSULTATION: Melena, anemia. HISTORY OF PRESENT ILLNESS: This is a 74-year-old male who has a history of right lower lobe lung cancer, following with Dr. Estelle Dowling. Patient has received chemo and radiation. Patient has been in the hospital since 02/25/2019. Apparently has had some black tarry stools and anemia. Since admission patient has had 1 unit of packed red blood cells. Full information hard to obtain. Patient is a poor historian and no family is at the bedside. During his hospitalization he has been seen by cardiology, pulmonology, and has been seen by oncology, Dr. Dowling. I have talked with the nurse who states today she noticed a dark green bowel movement not black or tarry. The patient denies abdominal pain. PAST MEDICAL HISTORY: Atrial fibrillation, history of right lower lobe lung cancer status post partial pneumonectomy and chemoradiation, following with Dr. Dowling, COPD. PAST SURGICAL HISTORY: Back surgery, partial pneumonectomy, history of EGD and colonoscopy by Dr. Spears in November 2016. ALLERGIES: No known drug allergies. MEDICATIONS: Cardia XT 120 mg every 24 hours, [place] 10/325 every 8 hours as needed, Prilosec 20 mg daily as needed, zolpidem 10 mg every night as needed. SOCIAL HISTORY: Positive for tobacco use, 1 pack of cigarettes daily. Occasional alcohol use. He lives by himself. There was no family at the bedside at the time of my evaluation. FAMILY HISTORY: Positive for heart disease in his father. REVIEW OF SYSTEMS: Unable to completely obtain due to patient being a poor historian. Information is obtained from the chart. PHYSICAL EXAMINATION: Vital Signs: Temperature 97.2 degrees, pulse 66, respirations 17, blood pressure 124/87. General: Patient was asleep at the time of my evaluation. He did arouse easily. He followed commands. HEENT: Normocephalic, atraumatic. Pupils equal, round, reactive to light. Sclerae nonicteric. Cardiovascular: Regular rate and rhythm. Respiratory: Decreased breath sounds. Abdomen: Soft. Positive bowel sounds. Nontender with palpation. DIAGNOSTIC RESULTS: Laboratory: Hematology: WBC 20.98, hemoglobin 8.5, hematocrit 27.2, MCV 95.4, platelet 110,000. Coagulation on 03/05/2019: PT 17.8, INR 1.44, PTT 29.9. Chemistry: Sodium 138, potassium 4.0, chloride 103, CO2 of 22, BUN 33, creatinine 1.0, glucose 93. ASSESSMENT AND PLAN: 1. Metastatic lung cancer. Continue current management. Continue recommendations by Dr. Dowling. Continue following with Pulmonology. 2. Anemia, stable. 3. Melena. Seems to have improved. We will continue to follow. Monitor for any evidence of active bleeding. Monitor hemoglobin and hematocrit. Transfuse further packed red blood cells as needed. We will be available as needed. Please re-consult GI if needed. I have discussed this case with Dr. Gonzalez. Dictated by SHARLA Stern for Estiven Gonzalez MD cc: SHARLA Barragan MD Amit V. Vora, MD [facility]ENT[facility]
[2019-03-10] MEDS: D5 1/2 NS + KCL 10 MEQ 1,000 ML IV SCH (17:03)
--- NOTE | 2019-03-10 17:32 | PULMONOLOGY PROGRESS NOTE ---
DATE: 03/10/2019 SUBJECTIVE: The patient is awake and alert. He answers questions in short sentences. He has some expressive aphasia. OBJECTIVE: Vital Signs: The patient is afebrile. BP 132/78, heart rate 73, respiratory rate 18, oxygen saturation 100% on 4 L per nasal cannula. He has no increased work of breathing. Cardiac: S1-S2. Abdomen: Soft. Chest: Reveals crackles on the right side with significant decrease in breath sounds at the right base. Extremities: Without edema. LABORATORIES: No new chemistry or CBC today. IMPRESSION: A 74-year-old with: 1. Metastatic lung cancer with extensive cancer burden in the right hemithorax. 2. Anemia. 3. Episode of transfusion-associated cardiac overload following blood transfusion. He clinically is significantly improved with diuresis. 4. Hypoxemic respiratory failure. PLAN: 1. Agree with oral antibiotics as you are doing. 2. Oxygen as needed for hypoxemic respiratory failure. 3. Anticipate transition to the rehab facility soon. cc: MD Mike Colbert MD
[2019-03-10] MEDS: AMBIEN PO SCH (21:43)
[2019-03-10] MEDS: CEFZIL PO SCH (21:43)
[2019-03-11 07:51] VITALS: BP 114/48
[2019-03-11] MEDS: D5 1/2 NS + KCL 10 MEQ 1,000 ML IV SCH (08:29)
--- NOTE | 2019-03-11 09:13 | PROGRESS NOTE ---
DATE: 03/11/2019 Mr. Motta is slightly better today. He is more alert. His lungs are clear except on the right side. Heart sounds are normal. He is alert. It looks like the stool color is changing. His lab data shows that hemoglobin is stable now and is 8.5. It was 8.5 on 03/09/2019. We will transfer him to [facility] if he is accepted there. His Eliquis has been stopped. cc: Mike Uribe MD
[2019-03-11] MEDS: MIRALAX PO SCH (09:21)
[2019-03-11] MEDS: ASPIRIN PO SCH (09:21)
[2019-03-11] MEDS: COLACE PO SCH (09:22)
[2019-03-11] MEDS: MEDROL PO SCH (09:22)
[2019-03-11] MEDS: BETAPACE PO SCH (09:22)
[2019-03-11] MEDS: CEFZIL PO SCH (09:22)
--- NOTE | 2019-03-11 10:03 | Diag Imaging Result Doc PS360 ---
EXAM: CHEST-PORTABLE HISTORY: abnormal exam TECHNIQUE: Chest single view COMPARISON: 03/06/2019 FINDINGS: Near complete opacification of the right hemithorax. The upper right lung is less aerated and has more infiltrates than it did on the prior study. There are multiple right hilar surgical clips. The left lung remains well expanded and clear. IMPRESSION: Interval worsening on the right. Electronically signed by Damian Luna 03/11/2019 10:01 AM
--- NOTE | 2019-03-11 10:41 | DISCHARGE SUMMARY ---
ADMISSION DATE: 02/25/2019 DISCHARGE DATE: 03/11/2019 HISTORY OF PRESENT ILLNESS: The patient is a 74-year-old gentleman, was admitted because of pneumonia on the right side. He was treated with respiratory therapy with DuoNeb as well as IV Zosyn and IV vancomycin. Later on, they were discontinued and he has been placed on Cefzil. The pneumonia is not improving because part of it is obstructive pneumonia and most of it is cancer in the right lung with some related pleural effusion. He was seen by a male infertility specialist, DR. Martin and DR. Amaya. While he was on the floor he had atrial fibrillation. Also, he was placed on Eliquis. Later on, he had GI bleeding and Eliquis was stopped during his stay. He had right-sided hemiplegia. He had a CT scan of the brain done, which revealed mild focal low- attenuation subcortical white matter right parietal lobe. There was microangiopathy, subcortical acute infarct could not be excluded. He had aphasia which he continues to have. He has improved some on the right side. He was evaluated by [facility] and they accepted him. However, the delay in transfer was because of the GI bleeding, which seemed to slowed down, because of multiple comorbidities further GI workup was not done. He will be continued on Protonix. FINAL DIAGNOSIS: Right lower lobe cancer of the lung with obstructive pneumonia, pleural effusion, anemia secondary to GI bleeding as well as malignancy. He had stroke on the right side with right hemiplegia and aphasia for which he has partially improved. He will be transferred to [facility] facility today in [place]. cc: Mike Uribe MD
[2019-03-12] MEDS ORDERED: PROTONIX PO SCH (07:00)
== END 2019-03-11 14:14 | DRG 193 ==
LOC: ED 16:04 → SUATTDRO 22:48 → EDIPHOLD 22:48 → 2N 02-26 11:02 → 3N 03-01 18:00
PROVIDERS: ADMIT Internal Medicine; ATTEND Internal Medicine